=== PATIENT | male | born 1955 | race Caucasian/White ===

== ENCOUNTER 2017-01-09 15:26 | Inpatient (IN) | payer BC, OTHER ==
[~2017-01-09] VITALS: Ht 180.3 cm; Wt 111.5 kg
[~2017-01-09 15:26] MED LIST: ACET-1256 PO; AMIO200T4 PO; CMD2 PO; CRFL PO; DEXTCAP23 PO; FRS/40 PO; LEVO200T6 PO; LEVO25TA5 PO; METO-217 PO; METO25TA3 PO; PRLSR20 PO; SPIR25TA PO
[2017-01-09] MEDS ORDERED: SODIUM CHLORIDE 0.9% 500ML 500 ML IV STA (15:57)
[2017-01-09] MEDS ORDERED: METHYLPREDNISOLONE 1000 MG/16 ML IV STA (15:57)
[2017-01-09] MEDS ORDERED: LEVAQUIN 750MG / 150ML D5W IV ONE (16:00)
[2017-01-09] MEDS ORDERED: METHYLPREDNISOLONE 125 MG VIAL IV STA (16:04)
--- NOTE | 2017-01-09 16:04 | EMERGENCY ROOM VISIT NOTE ---
History First contact with patient: 15:43 Chief Complaint: RESPIRATORY PROBLEMS Stated Complaint: FLU, FLUID IN CHEST Nursing Triage Summary: Chest congestion and SOB. Saw PCP yesterday and followed up with her today. History of pulm HTN. Has also had a fever. History of Present Illness The patient is a 61 year old male who presents to the Emergency Room with complaints of increased shortness of breath and a productive cough with green sputum for the last 4 days. The patient has a history of pulmonary hypertension. He is typically on 4 L of oxygen per nasal cannula at home. He has also felt feverish. The patient saw his primary care provider yesterday. He was started on doxycycline. He has had 2 doses with no improvement in his symptoms. The patient also has a significant cardiac history. He reports not being able to take inhalers because it exacerbates his A. fib. He does complain of some chest pain with coughing only. He has occasionally felt lightheaded over the last few days also. He denies any heart palpitations. Review of Systems 10 system review performed and negative unless noted in HPI or below Past Medical/Surgical History Medical Problems: (1) Atrial fibrillation (2) Endocarditis of mitral valve (3) GERD (gastroesophageal reflux disease) (4) H/O transesophageal echocardiography ([facility]) for monitoring (5) History of cardioversion (6) Hypothyroidism (7) Left atrial appendage closure (8) Restrictive lung disease (9) Thrombocytopenia Surgical Problems: (1) H/O exploratory thoracotomy (2) H/O inguinal hernia repair (3) H/O mitral valve replacement (4) S/P patent foramen ovale closure (5) Status post ablation of atrial fibrillation Family History No pertinent family history Social History Smoking Status: Former Smoker Alcohol Use: none Drug Use: none Marital Status: Housing Status: lives with family Current/Historical Medications Scheduled Amiodarone Hcl (Cordarone), 100 MG PO DAILY Home O2 Therapy (Oxygen), 4 LITERS NA PRN Levothyroxine Sodium (Levothyroxine Sodium), 50 MCG PO DAILY Levothyroxine Sodium (Levothyroxine Sodium), 200 MCG PO DAILY Losartan Potassium (Losartan Potassium), 12.5 MG PO DAILY Metoprolol Succinate (Toprol Xl), 50 MG PO QAM Potassium Chloride (Micro-K Ext Rel), 10 MEQ PO DAILY Spironolactone (Aldactone), 25 MG PO BID Torsemide (Demadex), 40 MG PO BID Warfarin Sod (Jantoven), 6 MG PO DIRECTED Warfarin Sod (Jantoven), 2 MG PO DIRECTED Scheduled PRN Clonazepam (Klonopin), 1 MG PO HS PRN for Anxiety Physical Exam Vital Signs Date Time Temp Pulse Resp B/P (MAP) Pulse Ox O2 Delivery O2 Flow Rate FiO2 01/09/17 18:16 88 Nasal Cannula 4.0 01/09/17 18:15 71 30 123/85 97 Nasal Cannula 4.0 01/09/17 16:41 68 17 124/59 96 Nasal Cannula 4.0 01/09/17 16:14 67 01/09/17 15:47 Nasal Cannula 4.0 01/09/17 15:35 37.3 71 20 107/66 91 Nasal Cannula Physical Exam VITALS: Vitals are noted on the nurse's note and reviewed by myself. Vital signs stable. GENERAL: 61-year-old male, in no acute distress, nondiaphoretic, well-developed well-nourished. SKIN: The skin was without rashes, HEAD: Normocephalic atraumatic. MOUTH: Mucous membranes slightly dry. NECK: Supple without nuchal rigidity. No lymphadenopathy No JVD. HEART: Irregularly irregular. Slight systolic murmur noted. LUNGS: Tachypnea noted. Mild expiratory wheeze. No crackles at the bases. ABDOMEN: Positive bowel sounds x 4.Soft, nontender, without organomegaly. No guarding or rebound tenderness. MUSCULOSKELETAL: Trace pitting edema in the lower extremities bilaterally. No erythema, tenderness or warmth appreciated. Strength 5/5 throughout. NEURO: Patient was alert and oriented to person place and time. Normal sensation to touch. No focal neurological deficits. Medical Decision & Procedures ER Provider Diagnostic Interpretation: CHEST 2 VIEWS ROUTINE CLINICAL HISTORY: SOB cough wheezing dyspnea COMPARISON STUDY: 09/11/2015 FINDINGS: Moderate cardiomegaly. Prior median sternotomy and valve replacement. Calcific change right lung base unchanged. Small bilateral pleural effusions unchanged. Diffuse interstitial and pulmonary vasculature prominence suggesting interstitial edema. IMPRESSION: Cardiomegaly with components of interstitial congestive heart failure. Small bilateral pleural effusions. The above report was generated using voice recognition software. It may contain grammatical, syntax or spelling errors. Electronically signed by: Tacos Carias M.D. 01/09/2017 5:18 PM Laboratory Results 01/09/17 16:19 Red Blood Count 3.37, Mean Corpuscular Volume 95.3, Mean Corpuscular Hemoglobin 30.9, Mean Corpuscular Hemoglobin Concent 32.4, Mean Platelet Volume 8.7, Neutrophils (%) (Auto) 75.7, Lymphocytes (%) (Auto) 9.9, Monocytes (%) (Auto) 12.3, Eosinophils (%) (Auto) 1.7, Basophils (%) (Auto) 0.0, Neutrophils # (Auto ) 5.22, Lymphocytes # (Auto) 0.68, Monocytes # (Auto) 0.85, Eosinophils # (Auto ) 0.12, Basophils # (Auto) 0.00 01/09/17 16:19 Test 01/09/17 16:19 White Blood Count 6.90 K/uL (4.8-10.8) Red Blood Count 3.37 M/uL (4.7-6.1) Hemoglobin 10.4 g/dL (14.0-18.0) Hematocrit 32.1 % (42-52) Mean Corpuscular Volume 95.3 fL (80-100) Mean Corpuscular Hemoglobin 30.9 pg (25-34) Mean Corpuscular Hemoglobin Concent 32.4 g/dl (32-36) Platelet Count 123 K/uL (130-400) Mean Platelet Volume 8.7 fL (7.4-10.4) Neutrophils (%) (Auto) 75.7 % Lymphocytes (%) (Auto) 9.9 % Monocytes (%) (Auto) 12.3 % Eosinophils (%) (Auto) 1.7 % Basophils (%) (Auto) 0.0 % Neutrophils # (Auto) 5.22 K/uL (1.4-6.5) Lymphocytes # (Auto) 0.68 K/uL (1.2-3.4) Monocytes # (Auto) 0.85 K/uL (0.11-0.59) Eosinophils # (Auto) 0.12 K/uL (0-0.5) Basophils # (Auto) 0.00 K/uL (0-0.2) RDW Standard Deviation 54.2 fL (36.4-46.3) RDW Coefficient of Variation 15.6 % (11.5-14.5) Immature Granulocyte % (Auto) 0.4 % Immature Granulocyte # (Auto) 0.03 K/uL (0.00-0.02) Prothrombin Time 42.1 SECONDS (9.0-12.0) Prothromb Time International Ratio 3.7 (0.9-1.1) Anion Gap 4.0 mmol/L (3-11) Est Creatinine Clear Calc Drug Dose 71.1 ml/min Estimated GFR () 62.8 Estimated GFR (Non- 54.2 BUN/Creatinine Ratio 16.6 (10-20) Lactic Acid Level 1.4 mmol/L (0.4-2.0) Calcium Level 8.4 mg/dl (8.5-10.1) Magnesium Level 2.4 mg/dl (1.8-2.4) Total Bilirubin 1.7 mg/dl (0.2-1) Aspartate Amino Transf (AST/SGOT) 11 U/L (15-37) Alanine Aminotransferase (ALT/SGPT) 21 U/L (12-78) Alkaline Phosphatase 79 U/L (45-117) Total Protein 7.1 gm/dl (6.4-8.2) Albumin 3.4 gm/dl (3.4-5.0) Globulin 3.7 gm/dl (2.5-4.0) Albumin/Globulin Ratio 0.9 (0.9-2) Medications Administered Medications (Trade) Dose Ordered Sig/Neyda Route Start Time Stop Time Status Last Admin Dose Admin Sodium Chloride 500 ml @ 0 mls/hr Q0M STAT IV 01/09/17 15:57 01/09/17 16:00 DC 01/09/17 16:37 0 MLS/HR Levofloxacin (Levaquin / D5W) 750 mg NOW ONCE IV 01/09/17 16:00 01/09/17 16:01 DC 01/09/17 16:37 750 MG Methylprednisolone Sodium Succinate (Solu-Medrol IV) 60 mg NOW STAT IV 01/09/17 16:04 01/09/17 16:05 DC 01/09/17 16:36 60 MG Furosemide (Lasix Inj) 40 mg NOW STAT IV 01/09/17 18:05 01/09/17 18:06 DC 01/09/17 18:22 40 MG ECG Indication: SOB/dyspnea Rate (beats per minute): 69 Rhythm: atrial fibrillation Comparison ECG Date: atrial fibrillation has replaced sinus rhythm ED Course Patient was seen and examined Vital signs including blood pressure were reviewed medications list was verified with patient Labs were obtained, and a saline lock was established Imaging was performed and reviewed The patient was given 1 dose of Solu-Medrol 60 mg IV. He was also given 1 dose of Levaquin. Upon reassessment, the patient was resting in bed. We discussed the results of his workup. He voiced understanding. The patient was given 1 dose of Lasix 40 mg IV The patient ambulated in the hallway. His oxygen dropped to 79% on 4 L The case was discussed with case management I discussed the case with the [facility]ist. They agreed to admit the patient. Medical Decision Differential diagnosis: Bronchitis, pneumonia, influenza , CHF exacerbation, pneumothorax, other viral syndrome, cardiac arrhythmia, severe anemia this patient is a pleasant 61-year-old male that presented to the emergency department with complaints of infectious symptoms including cough, and fever the patient is being treated for bronchitis/pneumonia with doxycycline. He has had 2 doses with no improvement. He complains of worsening dyspnea despite being on his typical 4 L of oxygen per nasal cannula. The patient's symptoms sounded infectious; therefore, he was given 1 dose of Levaquin. Upon review of the chest x-ray, it appears that he also is in heart failure. This could be secondary to his acute infection. The patient did have significant desaturation on his typical flow of 4 L per nasal cannula. I do not feel comfortable sending the patient home with his acute on chronic respiratory failure. He will need to be admitted with IV antibiotics as he has failed outpatient therapy. He will also likely need IV diuretics. Of note, the patient was recently taken off Lasix and started on Demadex. This could also be playing a role in his CHF exacerbation. Medication Reconcilliation Current Medication List: was personally reviewed by me Blood Pressure Screening Patient's blood pressure: Normal blood pressure Impression Primary Impression: Acute and chronic respiratory failure with hypoxia Departure Information Referrals Tacos Richards M.D. (PCP) Patient Instructions [facility]
[2017-01-09] MEDS ORDERED: TORS20TA2 PO (16:17)
[2017-01-09] MEDS ORDERED: POTA10CA28 PO (16:17)
[2017-01-09] MEDS ORDERED: CLON1TAB3 PO (16:17)
[2017-01-09] MEDS ORDERED: OXGN (16:17)
[2017-01-09] MEDS ORDERED: CZR25 PO (16:17)
[2017-01-09] MEDS ORDERED: WARF2TAB8 PO ×2 (16:17)
--- NOTE | 2017-01-09 16:24 | EMERGENCY ROOM VISIT NOTE ---
ED Visit Note First contact with patient: 15:43 I have seen and examined this patient with Mayte Jimenez and generally agree with the treatment plan as discussed. Problem List Medical Problems: (1) Atrial fibrillation Status: Chronic (2) Endocarditis of mitral valve Status: Chronic (3) GERD (gastroesophageal reflux disease) Status: Chronic (4) H/O transesophageal echocardiography ([facility]) for monitoring Permanent Comment: 09/06/15 - EF 55-59%, prosthetic mitral valve function Status: Chronic (5) History of cardioversion Permanent Comment: multiple times for atrial fibrillation Status: Chronic (6) Hypothyroidism Status: Chronic (7) Left atrial appendage closure Status: Chronic (8) Restrictive lung disease Status: Chronic (9) Thrombocytopenia Status: Chronic Surgical Problems: (1) H/O exploratory thoracotomy Status: Chronic (2) H/O inguinal hernia repair Status: Chronic (3) H/O mitral valve replacement Permanent Comment: x 2 for infective endocarditis in 2003 and 2006 Status: Chronic (4) S/P patent foramen ovale closure Status: Chronic (5) Status post ablation of atrial fibrillation Permanent Comment: x 2, most recently 09/06/15 Status: Chronic Current/Historical Medications Scheduled Amiodarone Hcl (Cordarone), 100 MG PO DAILY Home O2 Therapy (Oxygen), 4 LITERS NA PRN Levothyroxine Sodium (Levothyroxine Sodium), 50 MCG PO DAILY Levothyroxine Sodium (Levothyroxine Sodium), 200 MCG PO DAILY Losartan Potassium (Losartan Potassium), 12.5 MG PO DAILY Metoprolol Succinate (Toprol Xl), 50 MG PO QAM Potassium Chloride (Micro-K Ext Rel), 10 MEQ PO DAILY Spironolactone (Aldactone), 25 MG PO BID Torsemide (Demadex), 40 MG PO BID Warfarin Sod (Jantoven), 6 MG PO DIRECTED Warfarin Sod (Jantoven), 2 MG PO DIRECTED Scheduled PRN Clonazepam (Klonopin), 1 MG PO HS PRN for Anxiety Allergies Coded Allergies: No Known Allergies (Verified , 01/09/17) Vital Signs Date Time Temp Pulse Resp B/P (MAP) Pulse Ox O2 Delivery O2 Flow Rate FiO2 01/09/17 16:14 67 01/09/17 15:47 Nasal Cannula 4.0 01/09/17 15:35 37.3 71 20 107/66 91 Nasal Cannula Laboratory Results Test 01/09/17 15:57 01/09/17 16:05 Departure Information Referrals Tacos Richards M.D. (PCP) [facility] Instructions [facility]
[2017-01-09 16:35] LABS: COMPLETE YES; EOS % 1.7 %; HEMATOCRIT 32.1 % (42-52); IG% 0.4 %; LYMPH % 9.9 %; LYMPH ABS # 0.68 K/uL (1.2-3.4); MEAN CELL VOLUME 95.3 fL (80-100); MEAN CORPUSCULAR HEMOGLOBIN 30.9 pg (25-34); MEAN CORPUSCULAR HGB CONC 32.4 g/dl (32-36); MEAN PLATELET VOLUME 8.7 fL (7.4-10.4); MONO % 12.3 %; NEUT % 75.7 %; PLATELET COUNT 123 K/uL (130-400); RED BLOOD COUNT 3.37 M/uL (4.7-6.1)
[2017-01-09 16:51] LABS: BUN/CREATININE RATIO 16.6 (10-20); CREATININE 1.4 mg/dl (0.60-1.40); POTASSIUM 3.5 mmol/L (3.5-5.1)
[2017-01-09 16:52] LABS: CALCIUM 8.4 mg/dl (8.5-10.1); MAGNESIUM 2.4 mg/dl (1.8-2.4)
[2017-01-09 16:54] LABS: ALB/GLOB RATIO 0.9 (0.9-2)
[2017-01-09 16:56] LABS: INR 3.7 (0.9-1.1); PROTHROMBIN TIME (PATIENT) 42.1 SECONDS (9.0-12.0)
--- NOTE | 2017-01-09 17:19 | DIAGNOSTIC IMAGING REPORT ---
CHEST 2 VIEWS ROUTINE CLINICAL HISTORY: SOB cough wheezing dyspnea COMPARISON STUDY: 09/11/2015 FINDINGS: Moderate cardiomegaly. Prior median sternotomy and valve replacement. Calcific change right lung base unchanged. Small bilateral pleural effusions unchanged. Diffuse interstitial and pulmonary vasculature prominence suggesting interstitial edema. IMPRESSION: Cardiomegaly with components of interstitial congestive heart failure. Small bilateral pleural effusions. The above report was generated using voice recognition software. It may contain grammatical, syntax or spelling errors. Electronically signed by: Tacos Carias M.D. 01/09/2017 5:18 PM Dictated Date/Time: 01/09/2017 5:16 PM
[2017-01-09] MEDS ORDERED: FUROSEMIDE 40 MG/4 ML VIAL IV STA (18:05)
[2017-01-09] MEDS ORDERED: AMX500 PO (19:24)
[2017-01-09] MEDS ORDERED: ACET500T57 PO (19:24)
[2017-01-09] MEDS ORDERED: DXY100 PO (19:24)
[2017-01-09 20:06] VITALS: BP 115/61; PULSE 73; TEMP 37; Ht 180.3 cm; Wt 111.5 kg
[2017-01-09] MEDS ORDERED: CEFTRIAXONE SOD INJ 1 GM in DEXTROSE 5% ADD-VANTAGE 50ML 50 ML IV STA ×2 (20:22→20:25)
--- NOTE | 2017-01-09 20:57 | History and Physical ---
History & Physical Date & Time of Service: Jan 09, 2017 at 19:26 Chief Complaint: Flu, Fluid In Chest Primary Care Physician: Tacos Richards M.D. History of Present Illness Source: patient, spouse, clinic records This is a 61 year old male with PMH of pulmonary hypertension, atrial fibrillation, h/o endocarditis s/p bioprosthetic mitral valve replacement, chronic hypoxemic respiratory failure, hypothyroidism, and other problems listed below who presents to the ED with dyspnea. Patient reports chest congestion starting 2-3 days ago with associated cough with yellow sputum and fevers (Tmax 100.6). Patient was seen in clinic by Dr. Andrews yesterday, labs were done including blood cultures, and pt was started on doxycycline- took 2 doses without improvement. He was re-evaluated by Dr. Andrews today who sent him to the ED. He reports insomnia. Chronically sleeps on his side with 1 pillow (unchanged). Has gradually worsening WEBER over past 3 months. Becomes dyspneic with ambulating approx 200 ft or climbing 1-2 flights of stairs. Has been lightheaded on ambulation. Has been voiding well. Compliant with diuretics and sodium/ fluid restriction. He denies any nasal congestion, sore throat, chest pain, palpitations, syncope, increasing LE edema, weight gain. His Lasix was recently changed to torsemide. For cardiology patient has followed with Dr. Weiner, Dr. Hart, and Dr. Cardenas. Sees Dr. Wilder for pulm. Recent cardiac cath showed severe pulmonary HTN and coronary arteries without obstructive disease. Echo 10/2016 showed preserved EF. Patient was reviewed and discussed in 12/29/2016 Advanced Lung Disease Conference whose impression was that patient has Group 2 pulmonary HTN. Sleep study was recommended and is scheduled for later this month. Past Medical/Surgical History Medical Problems: (1) Atrial fibrillation Status: Chronic (2) Chronic hypoxemic respiratory failure Status: Chronic (3) Endocarditis of mitral valve Status: Chronic (4) GERD (gastroesophageal reflux disease) Status: Chronic (5) H/O transesophageal echocardiography ([facility]) for monitoring Permanent Comment: 09/06/15 - EF 55-59%, prosthetic mitral valve function Status: Chronic (6) History of cardioversion Permanent Comment: multiple times for atrial fibrillation Status: Chronic (7) Hypothyroidism Status: Chronic (8) Left atrial appendage closure Status: Chronic (9) Restrictive lung disease Status: Chronic (10) Thrombocytopenia Status: Chronic Surgical Problems: (1) H/O exploratory thoracotomy Status: Chronic (2) H/O inguinal hernia repair Status: Chronic (3) H/O mitral valve replacement Permanent Comment: x 2 for infective endocarditis in 2003 and 2006 Status: Chronic (4) S/P patent foramen ovale closure Status: Chronic (5) Status post ablation of atrial fibrillation Permanent Comment: x 2, most recently 09/06/15 Status: Chronic Family History FH: HTN (hypertension) MOTHER FHx: congenital heart disease DAUGHTER Mitral valve disorder MOTHER PTCA FATHER BROTHER Social History Smoking Status: Former Smoker (quit 1978) Alcohol Use: occasionally (occasional wine) Marital Status: in relationship Immunizations History of Influenza Vaccine: Yes Influenza Vaccine Date: Feb 22, 2015 History of Tetanus Vaccine?: Yes Tetanus Immunization Date: Sep 24, 2008 History of Pneumococcal: Yes Pneumococcal Date: May 12, 2013 Multi-Drug Resistant Organisms History of MDRO: No Allergies Coded Allergies: No Known Allergies (Verified , 01/09/17) Home Medications Scheduled Amiodarone Hcl (Cordarone), 100 MG PO DAILY Amoxicillin (Amoxicillin), 500 MG PO UD Doxycycline Hyclate (Doxycycline Hyclate), 100 MG PO BID Home O2 Therapy (Oxygen), 4 LITERS NA CONTINOUS Levothyroxine Sodium (Levothyroxine Sodium), 50 MCG PO DAILY Levothyroxine Sodium (Levothyroxine Sodium), 200 MCG PO DAILY Losartan Potassium (Losartan Potassium), 12.5 MG PO DAILY Metoprolol Succinate (Toprol Xl), 25 MG PO BID Potassium Chloride (Micro-K Ext Rel), 10 MEQ PO Q2D Spironolactone (Aldactone), 25 MG PO BID Torsemide (Demadex), 40 MG PO BID Warfarin Sod (Jantoven), 4 MG PO DAILY Scheduled PRN Acetaminophen (Acetaminophen), 1,000 TAB PO Q6 PRN for Pain or Fever Clonazepam (Klonopin), 1 MG PO HS PRN for Anxiety Review of Systems Ten systems reviewed and negative except as noted in HPI. Physical Exam Vital Signs Date Time Temp Pulse Resp B/P (MAP) Pulse Ox O2 Delivery O2 Flow Rate FiO2 01/09/17 18:16 88 Nasal Cannula 4.0 01/09/17 18:15 71 30 123/85 97 Nasal Cannula 4.0 01/09/17 16:41 68 17 124/59 96 Nasal Cannula 4.0 01/09/17 16:14 67 01/09/17 15:47 Nasal Cannula 4.0 01/09/17 15:35 37.3 71 20 107/66 91 Nasal Cannula General Appearance: WD/WN, no apparent distress, + pertinent finding ( significant other at bedside) Head: normocephalic, atraumatic Eyes: normal inspection, sclerae normal ENT: normal ENT inspection, hearing grossly normal Neck: supple, no JVD, trachea midline Respiratory/Chest: no accessory muscle use, + decreased breath sounds, + pertinent finding (mildly increased work of breathing, but able to speak full sentences. no wheezing, rhonchi, or crackles. saturating well on 4 liters NC) Cardiovascular: + irregularly irregular (rate 70's), + pertinent finding ( murmur not appreciated) Abdomen/GI: non tender, soft Extremities/Musculoskelatal: no calf tenderness, + pertinent finding (1+ bilateral LE edema. venous stasis changes bilateral LE. ) Neurologic/Psych: alert, normal mood/affect, oriented x 3, + pertinent finding (grossly without focal deficit) Skin: normal color, warm/dry Diagnostics Laboratory Results Results Past 24 Hours Test 01/09/17 16:19 Range/Units White Blood Count 6.90 4.8-10.8 K/uL Red Blood Count 3.37 4.7-6.1 M/uL Hemoglobin 10.4 14.0-18.0 g/dL Hematocrit 32.1 42-52 % Mean Corpuscular Volume 95.3 80-100 fL Mean Corpuscular Hemoglobin 30.9 25-34 pg Mean Corpuscular Hemoglobin Concent 32.4 32-36 g/dl Platelet Count 123 130-400 K/uL Mean Platelet Volume 8.7 7.4-10.4 fL Neutrophils (%) (Auto) 75.7 % Lymphocytes (%) (Auto) 9.9 % Monocytes (%) (Auto) 12.3 % Eosinophils (%) (Auto) 1.7 % Basophils (%) (Auto) 0.0 % Neutrophils # (Auto) 5.22 1.4-6.5 K/uL Lymphocytes # (Auto) 0.68 1.2-3.4 K/uL Monocytes # (Auto) 0.85 0.11-0.59 K/uL Eosinophils # (Auto) 0.12 0-0.5 K/uL Basophils # (Auto) 0.00 0-0.2 K/uL RDW Standard Deviation 54.2 36.4-46.3 fL RDW Coefficient of Variation 15.6 11.5-14.5 % Immature Granulocyte % (Auto) 0.4 % Immature Granulocyte # (Auto) 0.03 0.00-0.02 K/uL Prothrombin Time 42.1 9.0-12.0 SECONDS Prothromb Time International Ratio 3.7 0.9-1.1 Sodium Level 141 136-145 mmol/L Potassium Level 3.5 3.5-5.1 mmol/L Chloride Level 104 98-107 mmol/L Carbon Dioxide Level 33 21-32 mmol/L Anion Gap 4.0 3-11 mmol/L Blood Urea Nitrogen 23 7-18 mg/dl Creatinine 1.40 0.60-1.40 mg/dl Est Creatinine Clear Calc Drug Dose 71.1 ml/min Estimated GFR () 62.8 Estimated GFR (Non- 54.2 BUN/Creatinine Ratio 16.6 10-20 Random Glucose 90 70-99 mg/dl Lactic Acid Level 1.4 0.4-2.0 mmol/L Calcium Level 8.4 8.5-10.1 mg/dl Magnesium Level 2.4 1.8-2.4 mg/dl Total Bilirubin 1.7 0.2-1 mg/dl Aspartate Amino Transf (AST/SGOT) 11 15-37 U/L Alanine Aminotransferase (ALT/SGPT) 21 12-78 U/L Alkaline Phosphatase 79 45-117 U/L Total Protein 7.1 6.4-8.2 gm/dl Albumin 3.4 3.4-5.0 gm/dl Globulin 3.7 2.5-4.0 gm/dl Albumin/Globulin Ratio 0.9 0.9-2 Microbiology Results 01/09/17 Blood Culture, Received Pending 01/09/17 Blood Culture, Received Pending 01/09/17 Gram Stain, Received Pending 01/09/17 Sputum Culture, Received Pending Diagnostic Radiology CHEST 2 VIEWS ROUTINE CLINICAL HISTORY: SOB cough wheezing dyspnea COMPARISON STUDY: 09/11/2015 FINDINGS: Moderate cardiomegaly. Prior median sternotomy and valve replacement. Calcific change right lung base unchanged. Small bilateral pleural effusions unchanged. Diffuse interstitial and pulmonary vasculature prominence suggesting interstitial edema. IMPRESSION: Cardiomegaly with components of interstitial congestive heart failure. Small bilateral pleural effusions. EKG atrial fibrillation, 69 bpm, possible RV conduction delay, left posterior fascicular block, nonspecific T wave abnormality in aVL, no ST abnormality, qt= 444, qtc= 475 Impression Assessment and Plan DYSPNEA In setting of chronic respiratory failure on 4 liters continuous; underlying severe PAH (group 2 as per [facility] Advanced Lung Disease conference note), hx pulmonary nodules; hx tobacco abuse, hx endocarditis s/p replacement x 2 ( bioprosthesis) on Coumadin (INR 3.7; goal 2.5-3.5), and Afib s/p ablations; hx PFO closure Nonobstructive coronary artery disease but evidence of myocardial bridging of LAD and ramus intermedius on cath December 2006 and October 2016 Differential includes volume overload, worsening pulmonary artery hypertension and/ or valvular disease, community acquired pneumonia (has productive cough, low grade fever) CXR- cardiomegaly with components of interstitial congestive heart failure. small bilateral pleural effusions Pro-BNP- 900; initial troponin negative Prior cardiac cath 10/26/2016 showed severe pulmonary HTN and coronary arteries without obstructive disease Last echo 10/26/16- see below Treated for possible CAP as outpatient with doxycycline (took 2 doses); given dose of Levaquin in ER; will continue empiric abx (ceftriaxone and azithromycin) ; f/u sputum and blood cultures For mild volume overload, discontinued IVF's ordered by ER; received IV Lasix 40 mg in ER; will continue IV Lasix 40 mg daily (takes torsemide 40 mg BID at home); continue spironolactone; Fluid restriction 1 liter; Monitor I/O's and daily weight Trend cardiac enzymes Check repeat echo Continue supplemental O2 Consider VQ scan if no improvement with current treatments Sleep study planned as outpatient Consult cardiology- case was discussed with Dr. Arias Prior echo 10/25/16- "The qualitative LV ejection fraction is 60-64% (normal). The LV wall thickness is moderately increased (concentric). The right ventricular cavity is moderately dilated. The right ventricular systolic function is normal as assessed by tricuspid annular plane systolic excursion (TAPSE) (normal >1.7 cm). The left atrium is severely enlarged. The right atrium is moderately enlarged. #25 mm Yonatan Yip bioprosthesis appears well seated, however, the the geometry of mitral valve annulus has been altered so that the bioprosthesis is angulated with mitral valve inflow directed toward the interventricular septum. The mitral valve prosthesis systolic gradients are are borderline elevated and are indeterminate for obstruction. Significant mitral valve prosthesis regurgitation is absent. Mild tricuspid regurgitation is present. Injection of agitated saline contrast demonstrates a moderate right to left interatrial shunt. The estimated pulmonary artery systolic pressure is 44mm Hg. Compared to study dated 09/22/2013 changes are noted as follows: Bioprosthetic mitral valve diastolic gradients have increased." BIOPROSTHETIC MITRAL VALVE On Coumadin; supra-therapeutic (3.7) goal is 2.5-3.5 Recheck INR in AM and titrate Coumadin as indicated ATRIAL FIBRILLATION Rate is controlled Continue metoprolol and amiodarone On Coumadin- management as above HYPERTENSION BP is stable Continue losartan HYPOTHYROIDISM Check T4 level Continue levothyroxine (ordered as 50 and 200 mcg for total of 250 mcg as patient takes at home) DVT PROPHYLAXIS Coumadin CODE STATUS Full code per discussion with patient on admission. DISPOSITION Admission telemetry Follows with Dr. Richards for primary care Patient seen in collaboration with Dr. Cabrera. Please see his addendum. ATTENDING PHYSICIAN ADDENDUM I have performed the physical exam with Lauren Mccarthy PA-C and agree with her findings and plan and in addition would comment on the following: Exam: Patient is in no acute distress, awake and oriented, speaking comfortably in full sentences while on nasal cannula, follows commands. There are no crackles appreciated in the lung gallagher throughout. No wheezing. No stridor. Has some limitations in inspiratory effort however no use of accessory muscles. Cardiac exam of heart rate that is irregular in rhythm. No appreciable murmurs could be discerned. No JVD. No cervical adenopathy. Oral pharynx are without exudates. Abdomen exam is soft, nontender, + bowel sounds. Edema in lower extremities that is 1+ bilaterally from ankle to knees bilaterally. This is a 61 year old M with multiple cardiovascular conditions (atrial fibrillation on beta howard despite s/p pulmonary vein ablation, moderate to severe pulmonary artery hypertension, history of endocarditis x 2 which had been treated, history of bioprosthesis mitral valve, currently on anticoagulation with coumadin with supratherapeutic INR, currently on home oxygen) who describes of having progressive shortness of breath and functional impairments over the past 3 months, who presents to the ED after 3 days of congestion and cough with reported history of 100.6 F and has been on doxycycline x 2 doses by outpatient provider. At this time there may be multiple differentials in acute presentation of respiratory symptoms including viral vs bacterial pulmonary as there appears to be interstitial lung findings on chest X ray, vs cardio-pulmonary causes for fluid overload (his BNP is over 900 with lower extremity edema) including pulmonary artery hypertension. Will empirically continue antibiotics for coverage of community acquired pneumonia and diuresis for fluid overload. Patient is admitted to telemetry monitoring. Will trend troponins. Will obtain 2D TTE to compare whether he has worsening pulmonary hypertension or further valvular disease based on previous records. Will recheck his INR in the morning to adjust coumadin medication. Awaiting cardiology consult in recommendations for treatment of his multiple cardiac problems. Will also send thyroid function tests as patient is on amiodarone for his history of arrhythmias and he has been on levothyroxine for hypothyroidism. VTE Prophylaxis VTE Risk Assessment Done? Y/N: Yes Risk Level: Moderate Given or contraindicated: Warfarin (Coumadin)
[2017-01-09] MEDS ORDERED: AZITHROMYCIN IV 500 MG in DEXTROSE 5% 250ML 250 ML IV SCH (21:00)
[2017-01-09] MEDS: METOPROLOL SUCC 25MG EXT REL TAB PO SCH (21:30)
[2017-01-09] MEDS: SPIRONOLACTONE 25 MG TAB PO SCH (21:30)
[2017-01-09] MEDS: POTASSIUM CHLORIDE 10 MEQ TABCR PO SCH (21:31)
[2017-01-09] MEDS ORDERED: NURSING VERBAL MED ORDER ONE (22:30)
[2017-01-09] MEDS ORDERED: GUAIFENESIN/DEXTROM SYRUP 200MG/20MG 10ML UDC PO PRN (22:30)
[2017-01-09 23:13] VITALS: BP 100/62; PULSE 68; TEMP 36.5; O2SAT 94
[2017-01-10 04:06] VITALS: BP 110/70; PULSE 71; TEMP 36.6; O2SAT 93
[2017-01-10] MEDS ORDERED: COUGH DROP (SUGAR FREE) LOZ 24 LOZ/1 BOX ONE (05:20)
[2017-01-10] MEDS: LEVOTHYROXINE 50 MCG TAB PO SCH (05:21)
[2017-01-10] MEDS: LEVOTHYROXINE 200 MCG TAB PO SCH (05:21)
[2017-01-10 07:12] LABS: COMPLETE YES; HEMATOCRIT 31.7 % (42-52); IG% 0.4 %; LYMPH ABS # 0.21 K/uL (1.2-3.4); MEAN CORPUSCULAR HEMOGLOBIN 29.9 pg (25-34); MEAN CORPUSCULAR HGB CONC 32.2 g/dl (32-36); MEAN PLATELET VOLUME 8.4 fL (7.4-10.4); MONO % 2.3 %; NEUT % 94.3 %; PLATELET COUNT 108 K/uL (130-400); RED BLOOD COUNT 3.41 M/uL (4.7-6.1); WHITE BLOOD COUNT 6.99 K/uL (4.8-10.8)
[2017-01-10 07:35] LABS: INR 4.1 (0.9-1.1); PARTIAL THROMBOPLASTIN RATIO 2.5; PROTHROMBIN TIME (PATIENT) 46.8 SECONDS (9.0-12.0)
[2017-01-10 07:44] VITALS: BP 108/60; PULSE 76; TEMP 36.8; O2SAT 91
[2017-01-10 07:46] LABS: ALT/SGPT 20 U/L (12-78); AST/SGOT 8 U/L (15-37); BLOOD UREA NITROGEN 27 mg/dl (7-18); BUN/CREATININE RATIO 20.9 (10-20); CALCIUM 8.8 mg/dl (8.5-10.1); CARBON DIOXIDE 30 mmol/L (21-32); CHLORIDE 105 mmol/L (98-107); GLUCOSE 140 mg/dl (70-99); POTASSIUM 4.1 mmol/L (3.5-5.1); SODIUM 140 mmol/L (136-145)
[2017-01-10] MEDS: METOPROLOL SUCC 25MG EXT REL TAB PO SCH ×2 (08:03→20:31)
[2017-01-10] MEDS: SPIRONOLACTONE 25 MG TAB PO SCH ×2 (08:04→20:31)
[2017-01-10] MEDS: LOSARTAN POTASSIUM 25 MG TAB PO SCH (08:04)
[2017-01-10] MEDS: AMIODARONE 200 MG TAB PO SCH (08:04)
[2017-01-10 08:12] LABS: ALB/GLOB RATIO 0.9 (0.9-2); ALKALINE PHOSPHATASE 80 U/L (45-117); THYROID STIMULATING HORMONE 0.097 uIu/ml (0.300-4.500)
--- NOTE | 2017-01-10 08:43 | ECHOCARDIOGRAM REPORT ---
*NOTICE TO RECEIVING CONSTITUTION PARTY AGENCY This information is strictly Confidential and protected under [place] law. [place] law prohibits you from making any further disclosure of this information unless further disclosure is expressly permitted by the written consent of the person to whom it pertains or is authorized by law. A general authorization for the release of medical or other information is not sufficient for this purpose. Hospital accepts no responsibility if the information is made available to any other person, INCLUDING THE PATIENT. Interpretation Summary * Name: BARBER MANCINI Study Date: 01/10/2017 06:33 AM BP: 110/70 mmHg * Patient Location: C.2T\S\S242\S\1 HR: 55 * : 1955 (M/d/yyyy) Gender: Male Height: 70 in * Age: 61 yrs Ethnicity: CA Weight: 244 lb * Ordering Physician: Chinmay Cabrera * Referring Physician: Self, Referred * Performed By: Daya Julio RCS * * Reason For Study: Atrial Fibrillation * BSA: 2.3 m2 * The study was technically adequate. * -- Conclusions -- * Flattened septum with septal dyskinesis is consistent with RV pressure/volume overload. * The LV Ejection Fraction = 50-55%. * The right ventricle is moderately dilated. * The right ventricular systolic function is moderately reduced. * The left atrium is severely dilated. * There is a bioprosthetic mitral valve. * Significant mitral regurgitation is absent. * The mitral valve bioprosthesis is situated is such a way as it angles toward the left ventricular outflow tract , making Doppler assessment of mitral stenosis technically difficult. * No significant mitral stenosis is detected with calculated diastolic mean gradient of 6 mm Hg, which is normal for this prosthesis. * Significant tricuspid regurgitation is absent. * The Doppler evaluation of tricuspid regurgitation is technically limited, and therefore the right ventricular systolic pressure and pulmonary artery systolic pressure cannot be calculated. * Pulmonary hypertension is suspected based on 2D findings. * Compared to the prior study dated 09/11/15, the right ventricle is better visualized on the current study, with images obtained utilizing ultrasound contrast. Procedure Details * A contrast injection of Definity was performed to improve assessment of LV function. * Contrast was injected into an intravenous site in the left arm. * One vial of Definity ultrasound contrast was diluted in normal saline to a total volume of 10 ml. A total of '4' ml of solution was administered during imaging. * Lot # [id number] of Definity utilized for procedure. * Expiration date [id number]. * A complete two-dimensional transthoracic echocardiogram was performed (2D, M-mode, Doppler and color flow Doppler). Left Ventricle * The left ventricle is normal in size. * There is mild concentric left ventricular hypertrophy. * Left ventricular systolic function is normal. * Ejection Fraction = 50-55%. * Flattened septum with septal dyskinesis is consistent with RV pressure/volume overload. Right Ventricle * The right ventricle is moderately dilated. * The right ventricular systolic function is moderately reduced. Atria * The left atrium is severely dilated. * Right atrial size is normal. * There is no evidence of atrial septal defect, but resolution does not allow assessment for a patent foramen ovale. Mitral Valve * Significant mitral regurgitation is absent. * There is a bioprosthetic mitral valve. * The mitral valve bioprosthesis is situated is such a way as it angles toward the left ventricular outflow tract , making Doppler assesment of mitral stenosis technically difficult. No significant mitral stenosis is detected with calculated diastolic mean gradient of 6 mm Hg, which is normal for this prosthesis. Tricuspid Valve * The tricuspid valve is normal. * There is no tricuspid stenosis. * Significant tricuspid regurgitation is absent. * The Doppler evaluation of tricuspid regurgitation is technically limited, and therefore the right ventricular systolic pressure and pulmonary artery systolic pressure cannot be calculated. Pulmonary hypertension is suspected based on 2D fidndings. Aortic Valve * The aortic valve is trileaflet. * Aortic stenosis is absent. * There is no significant aortic regurgitation. Pulmonic Valve * The pulmonary valve is not well seen, but the Doppler examination is normal without significant regurgitation or stenosis. Great Vessels * The aortic root and proximal ascending aorta are normal sized. Pericardium/Pleural * There is no pericardial effusion. Great Vessels * Normal inferior vena cava diameter and respiratory variation suggests normal central venous pressure. Left Ventricular Diastolic Function * Grade I diastolic dysfunction, (abnormal relaxation pattern). MMode 2D Measurements and Calculations IVSd 1.6 cm LVIDd 4.0 cm LVIDs 3.0 cm LVPWd 1.7 cm IVS/LVPW 0.93 FS 25.0 % EDV(Teich) 69.3 ml ESV(Teich) 34.6 ml EF(Teich) 50.1 % EDV(cubed) 63.2 ml ESV(cubed) 26.6 ml EF(cubed) 57.9 % LV mass(C)d 279.2 grams LV mass(C)dI 122.9 grams/m\S\2 SV(Teich) 34.7 ml SI(Teich) 15.3 ml/m\S\2 SV(cubed) 36.6 ml SI(cubed) 16.1 ml/m\S\2 Ao root diam 3.6 cm Ao root area 10.1 cm\S\2 LVOT diam 2.4 cm LVOT area 4.7 cm\S\2 LVAd ap4 41.0 cm\S\2 LVLd ap4 9.6 cm EDV(MOD-sp4) 142.3 ml EDV(sp4-el) 148.0 ml LVAs ap4 23.1 cm\S\2 LVLs ap4 8.6 cm ESV(MOD-sp4) 50.2 ml ESV(sp4-el) 52.3 ml EF(MOD-sp4) 64.7 % EF(sp4-el) 64.7 % LVAd ap2 32.5 cm\S\2 LVLd ap2 9.0 cm EDV(MOD-sp2) 94.9 ml EDV(sp2-el) 99.5 ml LVAs ap2 22.3 cm\S\2 LVLs ap2 8.0 cm ESV(MOD-sp2) 48.8 ml ESV(sp2-el) 52.5 ml EF(MOD-sp2) 48.6 % EF(sp2-el) 47.2 % LVLd %diff -6.94 % EDV(MOD-bp) 117.4 ml LVLs %diff -7.35 % ESV(MOD-bp) 51.1 ml EF(MOD-bp) 56.5 % SV(MOD-sp4) 92.1 ml SI(MOD-sp4) 40.5 ml/m\S\2 SV(MOD-sp2) 46.1 ml SI(MOD-sp2) 20.3 ml/m\S\2 SV(MOD-bp) 66.3 ml SI(MOD-bp) 29.2 ml/m\S\2 SV(sp4-el) 95.7 ml SI(sp4-el) 42.2 ml/m\S\2 SV(sp2-el) 47.0 ml SI(sp2-el) 20.7 ml/m\S\2 Doppler Measurements and Calculations MV V2 max 232.8 cm/sec MV max PG 22.3 mmHg MV V2 mean 112.4 cm/sec MV mean PG 6.7 mmHg MV V2 VTI 79.5 cm Ao V2 max 147.8 cm/sec Ao max PG 8.9 mmHg Ao max PG (full) 5.6 mmHg DUARTE(V,A) 2.9 cm\S\2 DUARTE(V,D) 2.9 cm\S\2 LV V1 max PG 3.4 mmHg LV V1 max 91.3 cm/sec
[2017-01-10] MEDS ORDERED: FUROSEMIDE INJ 40 MG in SYRINGE 0 ML IV SCH (09:00)
--- NOTE | 2017-01-10 09:40 | Cardiology Consultation ---
Cardiology Consultation Date of Consultation: Jan 10, 2017 History of Present Illness Scott Rangel is a 61 year old male seen in cardiology consultation per the request of Lauren Mccarthy PA-C, for the evaluation of shortness of breath. The patient is well-known to our cardiology service, he is followed by Dr. Piero Cardenas of our practice locally as well as Dr. Hart of EP at [facility] and Dr Weiner of advanced Heart Failure at [facility] and by thoracic medicine. He has a complex cardiac history as delineated below. The patient presented yesterday having described onset of cough productive of green and pink tinged sputum 4 days with associated chest congestion. He noted low-grade subjective fever on Sunday was relieved with Tylenol. He been seen by [facility] 2 days ago was noted to have a fever of 100.6F. Patient was initially started on doxycycline as an outpatient and subsequently referred for inpatient evaluation. He notes no fevers or chills at present. He notes that he has baseline dyspnea on exertion and notes that he has to pace himself at baseline but has been doing well recently with oxygen supplementation and with diuretic dose of torsemide 40 mg twice a day which was started the dental heart failure clinic about a month ago and he has done well with this dose in the interim. Cultures have been negative thus far, he is currently on antibiotic therapy with IV Rocephin and azithromycin. He reproduces cough during my interview with him, green, slightly pink tinged sputum was observed. Telemetry reveals stable sinus rhythm in the 70-80 beat per minute range with occasional PVCs. History Past Medical History: 1. Nonobstructive coronary artery disease with evidence of myocardial bridging of the LAD and ramus intermedius on cardiac catheterization in December 2006 and again in October 2016 2. Severe pulmonary hypertension, PA pressure of 80/30 mmHg, hemodynamic cardiac catheterization [facility] October 2016, has since been deemed to have World Health Organization class II pulmonary hypertension with elevated troponin pressures due to elevated left sided cardiac pressure 3. History of mitral valve endocarditis for which she underwent mitral valve replacement with Yonatan-Yip prosthesis 2003, with associated PFO closure and left atrial appendage ligation 4. Return to the operating room for repair of abscess mitral valve annulus 2003 5. Redo mitral valve replacement for culture-negative endocarditis February 2007 with #23 mm Yonatan Yip bioprosthesis . 6. Paroxysmal atrial fibrillation, currently managed with amiodarone, past pulmonary vein isolation procedure 2014, repeat pulmonary vein isolation procedure with isolation the posterior atrial wall, and tricuspid isthmus ablation in September 2015 Past Surgical History: As noted above, specifically patient underwent most recent cardiac catheterization at [facility] by Dr Weiner on 10/26/16: Left heart cath , coronary angiography, and right heart cath performed. Severe pulmonary hypertension was noted 80/30, mean 52 mmHg. It was felt that this was a "missed picture "of pulmonary hypertension having elevated left sided cardiac filling pressures but also elevated pulmonary vascular resistance. No significant mitral valve stenosis, the mitral valve area estimated by hemodynamic assessment was 1.7 cm Severely elevated right and left-sided filling pressures, right atrial pressure 20, [id number] Here which pressure 30 mmHg No significant left to right shunt, a trivial interatrial shunt had been noted on the transesophageal echocardiogram in 2015, this was felt to be a remnant from a prior atrial septal puncture related to his atrial fibrillation ablation Coronary arteries were without obstructive CAD, systolic bridging occurred only in a small subbranch of the ramus intermedius Social History: Patient is a former smoker having smoked half a pack a day for 3 years and quit in 1978 He does not use alcohol chronically Family History: Mother with history of mitral valve disease hypertension, thyroid disorder Father with history of coronary artery disease with prior angioplasty Brother with history of coronary artery disease and past cardiac stents He has a daughter who apparently has congenital valve disease Review Of Systems See above for pertinent positives & negatives. A total of 10 systems reviewed and were otherwise negative. Allergies Coded Allergies: No Known Allergies (Verified , 01/09/17) Medications Reported Home Medications Medications Dose Route/Sig Max Daily Dose Days Date Category Dose Instructions Amoxicillin 500 Mg Cap 500 Mg PO UD 01/09/17 Reported Take 4 capsules by mouth 1 hour before dental procedures. Acetaminophen 500 Mg Tab 1,000 Tab PO Q6 PRN 15 01/09/17 Reported Doxycycline Hyclate 100 Mg Cap 100 Mg PO BID 01/09/17 Reported Klonopin (Clonazepam) 1 Mg Tab 1 Mg PO HS PRN 01/09/17 Reported Oxygen Gas 4 Liters NA CONTINOUS 01/09/17 Reported Jantoven (Warfarin Sodium) 2 Mg Tab 4 Mg PO DAILY 01/09/17 Reported Demadex (Torsemide) 20 Mg Tab 40 Mg PO BID 01/09/17 Reported Losartan Potassium 25 Mg Tab 12.5 Mg PO DAILY 01/09/17 Reported Micro-K Ext Rel (Potassium Chloride) 10 Meq Capcr 10 Meq PO Q2D 01/09/17 Reported Toprol Xl (Metoprolol Succinate) 50 Mg Tabcr 25 Mg PO BID 04/07/15 Reported Levothyroxine Sodium 200 Mcg Tab 200 Mcg PO DAILY 04/07/15 Reported TAKE ONE 200 MCG TABLET ALONG WITH TWO 25 MCG TABLETS TO EQUAL DAILY DOSE OF 250 MCG. Levothyroxine Sodium 25 Mcg Tab 50 Mcg PO DAILY 04/07/15 Reported TAKE TWO 25 MCG TABLETS ALONG WITH ONE 200 MCG TABLET TO EQUAL DAILY DOSE OF 250 MCG. Cordarone (Amiodarone Hcl) 200 Mg Tab 100 Mg PO DAILY 03/20/14 Reported Aldactone (Spironolactone) 25 Mg Tab 25 Mg PO BID 08/15/10 Reported Physical Exam Vital Signs (Last 8hrs): Last 8 Hrs Date Time Temp Pulse Resp B/P (MAP) Pulse Ox O2 Delivery O2 Flow Rate FiO2 01/10/17 08:00 Nasal Cannula 4.0 01/10/17 07:44 36.8 76 18 108/60 (76) 91 3.0 01/10/17 04:06 36.6 71 22 110/70 (83) 93 Nasal Cannula 3.0 01/10/17 04:00 Nasal Cannula 4.0 General Appearance: Alert and Oriented x3. NAD. Head: Normocephalic Atraumatic. Eyes: PERRLA, EOMI, conjunctiva and sclera clear Neck: Supple. No carotid bruits noted. No JVD-sitting at 90 Respiratory: Breath sounds clear to auscultation bilaterally. No w/r/r. Cardiovascular: Reg rate and rhythm. S1 and S2 noted. No murmurs, rubs, gallops. PMI non displace. Abdomen: Normal bowel sounds, soft nontender. no abdominal bruits. Extremities: . Wearing knee-high compression stockings, only trace edema noted Neuro: No focal deficits. Psychiatric: Normal affect. Data Last Resulted 01/10/17 06:52 Red Blood Count 3.41, Mean Corpuscular Volume 93.0, Mean Corpuscular Hemoglobin 29.9, Mean Corpuscular Hemoglobin Concent 32.2, Mean Platelet Volume 8.4, Neutrophils (%) (Auto) 94.3, Lymphocytes (%) (Auto) 3.0, Monocytes (%) (Auto) 2.3, Eosinophils (%) (Auto) 0.0, Basophils (%) (Auto) 0.0, Neutrophils # (Auto) 6.59, Lymphocytes # (Auto) 0.21, Monocytes # (Auto) 0.16, Eosinophils # (Auto) 0.00, Basophils # (Auto) 0.00 Last Resulted 01/10/17 06:52 Past 24 Hours Test 01/09/17 16:19 01/09/17 22:56 01/10/17 06:52 Range/Units Prothromb Time International Ratio 3.7 H 4.1 H 0.9-1.1 Prothrombin Time 42.1 H 46.8 H 9.0-12.0 SECONDS Troponin I < 0.015 < 0.015 < 0.015 0-0.045 ng/ml EKG performed on admission and again today reveals normal sinus rhythm with no acute ST changes. Chest x-ray report as summarized per radiology 01/09/2017: Cardiomegaly with prior median sternotomy and valve replacement, calcific change the right lung base unchanged, small bilateral pleural effusions, unchanged compared to prior study dating back to September 2015, diffuse interstitial pulmonary vascular prominence suggestive of interstitial edema Assessment & Plan Impression: 1. Cough, chest congestion, low-grade fever, consistent with complicated bronchitis versus community acquired pneumonia 2. History of left ventricular diastolic heart failure, right ventricular failure with RV systolic dysfunction, pulmonary venous/pulmonary arterial hypertension 3. History of stage III CK D 4. History of remote mitral valve endocarditis, with mitral valve replacement 2 Discussion/recommendations: In October, the patient had hemodynamic assessment cardiac catheterization at [facility] which excluded the presence of obstructive CAD. Elevated right and left filling pressures are noted, and his diuretic therapy had been intensified he is on spironolactone as well as torsemide 40 mg twice a day. The chest x-ray is somewhat difficult to interpret, he does have a history of underlying interstitial changes well, at present, the patient is able to lie supine and was completely comfortable. He seems well compensated from a heart failure standpoint, and he notes that his abdominal fluid retention and lower extremity edema has significantly improved on his intensified dose of torsemide over the last one month interval of time. I read the heart failure note from [facility] last month and based on what I see on his physical exam findings today compared to what the record, he seems to be doing better from a fine status standpoint. He is on chronic amiodarone for suppression of his symptomatic atrial arrhythmias and has undergone ablations on 2 separate occasions. Given chronic amiodarone use, I recommend against the use of antibiotics to prolong the QT interval and therefore I discontinued azithromycin. Recommend an alternative agent to treat atypical pulmonary pathogens. I would personally also recommend against Zosyn because this would require a significant amount of administration of IV fluids, and I think he would become volume overloaded and then would require more intensive diuresis. I will defer the choice of antibiotics to the primary service, but patient does not have a penicillin allergy so transitioning him to cefepime, or adding doxycycline may be options. I would avoid IV fluoroquinolone or macrolide antibiotic. He is currently actually on less intensive diuretic therapy with furosemide 40 mg IV daily compared to his torsemide 40 mg by mouth twice a day, I'm going to place him back on his home regimen. His daily weights and intake and output need to be monitored, and as he is receiving IV antibiotics, we need to keep his intake and output still even or perhaps slightly negative to avoid superimposed heart failure decompensation. He had an echocardiogram today, that revealed stable findings compared to his recent outpatient studies. The right heart is noted to be moderately enlarged with at least moderate RV systolic dysfunction, I think the right heart was much better visualized on this study compared to a study performed at [facility] in 2016. Lucio Xiong DO
[2017-01-10 11:15] VITALS: BP 109/64; PULSE 75; TEMP 36.7; O2SAT 94
--- NOTE | 2017-01-10 12:27 | Clinical Documentation Query ---
QUERY 1 OF [address] SUAREZ, In your clinical opinion is this patient being managed for: ( ) Acute on chronic diastolic CHF ( x ) Other explanation of clinical findings (Please Explain) CHRONIC DIASTOLIC CHF ( ) Unable to determine (Please Define) ( ) Need to Discuss ( ) Not Agree The medical record reflects the following clinical findings, treatment, and risk factors. Clinical Indicators: 61 yo male presenting with increasing dyspnea. Trace to +1 bilateral LE edema. ER impression includes CHF exacerbation. CXR with components of interstitial CHF and small bilateral pleural effusions. BNP 980 Treatment: IV lasix, 1L fluid restriction, I/O, daily wts, tele, O2 support, cardiology consult, ECHO Risk Factors: suspected pneumonia, hx diastolic CHF, CKD stage III, A fib, recent diuretic change at home QUERY 2 OF 2 In your clinical opinion is this patient being managed for: ( x ) Acute and chronic hypoxic respiratory failure ( ) Other explanation of clinical findings (Please Explain) ( ) Unable to determine (Please Define) ( ) Need to Discuss ( ) Not Agree The medical record reflects the following clinical findings, treatment, and risk factors. Clinical Indicators: Pt tachypneic with resp rates 29-33 during ER stay. O2 sat dropping to 88% on 4L, 79% on 4L with ambulation Treatment: IV solumedrol, IV lasix, IV rocephin, IV levaquin, IV azithromycin, tele monitoring, O2 support Risk Factors:pneumonia, CHF, chronic respiratory failure Please clarify and document your clinical opinion in the progress notes and discharge summary. Terms such as "probable", "suspected", "likely", "questionable", "possible", or "still to be ruled out" are acceptable. IF IN AGREEMENT, YOU MUST DOCUMENT ABOVE DIAGNOSTIC STATEMENT IN DAILY PROGRESS NOTES AND DISCHARGE SUMMARY. This document is not part of the patient's record. Thank You, Shira Jones, RN [phone]
[2017-01-10 15:22] VITALS: BP 115/66; PULSE 69; TEMP 36.2; O2SAT 95
[2017-01-10] MEDS ORDERED: METHYLPREDNISOLONE IV 40 MG in SYRINGE 0 ML IV ONE (16:15)
[2017-01-10] MEDS: TORSEMIDE 20 MG TAB PO SCH (16:41)
--- NOTE | 2017-01-10 18:48 | Progress Note ---
Medicine Progress Note Date & Time of Visit: Jan 10, 2017 at 18:48 . Subjective No fever since admission. Persistent cough productive of yellow sputum. Still more dyspneic than baseline. No anginal symptoms. No nausea, vomiting, diarrhea. . Objective Last 8 Hrs Date Time Temp Pulse Resp B/P (MAP) Pulse Ox O2 Delivery O2 Flow Rate FiO2 01/10/17 16:00 Nasal Cannula 4.0 01/10/17 15:22 36.2 69 20 115/66 (82) 95 Nasal Cannula 2.0 01/10/17 12:00 Nasal Cannula 4.0 01/10/17 11:15 36.7 75 18 109/64 (79) 94 Room Air Physical Exam: General- no acute distress Neck- no JVD Lungs- scattered rhonchi, diffuse wheezing Heart- RRR, no gallop appreciated Abdomen- + BS, soft, nontender Extremities- wearing support stockings; 1+ pretibial edema; no calf tenderness Neuro- alert, oriented . Laboratory Results: Last 24 Hours Test 01/09/17 22:56 01/10/17 06:52 Troponin I < 0.015 ng/ml < 0.015 ng/ml White Blood Count 6.99 K/uL Red Blood Count 3.41 M/uL Hemoglobin 10.2 g/dL Hematocrit 31.7 % Mean Corpuscular Volume 93.0 fL Mean Corpuscular Hemoglobin 29.9 pg Mean Corpuscular Hemoglobin Concent 32.2 g/dl Platelet Count 108 K/uL Mean Platelet Volume 8.4 fL Neutrophils (%) (Auto) 94.3 % Lymphocytes (%) (Auto) 3.0 % Monocytes (%) (Auto) 2.3 % Eosinophils (%) (Auto) 0.0 % Basophils (%) (Auto) 0.0 % Neutrophils # (Auto) 6.59 K/uL Lymphocytes # (Auto) 0.21 K/uL Monocytes # (Auto) 0.16 K/uL Eosinophils # (Auto) 0.00 K/uL Basophils # (Auto) 0.00 K/uL RDW Standard Deviation 52.3 fL RDW Coefficient of Variation 15.4 % Immature Granulocyte % (Auto) 0.4 % Immature Granulocyte # (Auto) 0.03 K/uL Prothrombin Time 46.8 SECONDS Prothromb Time International Ratio 4.1 Activated Partial Thromboplast Time 65.7 SECONDS Partial Thromboplastin Ratio 2.5 Sodium Level 140 mmol/L Potassium Level 4.1 mmol/L Chloride Level 105 mmol/L Carbon Dioxide Level 30 mmol/L Anion Gap 5.0 mmol/L Blood Urea Nitrogen 27 mg/dl Creatinine 1.30 mg/dl Est Creatinine Clear Calc Drug Dose 76.6 ml/min Estimated GFR () 68.7 Estimated GFR (Non- 59.3 BUN/Creatinine Ratio 20.9 Random Glucose 140 mg/dl Calcium Level 8.8 mg/dl Total Bilirubin 1.6 mg/dl Aspartate Amino Transf (AST/SGOT) 8 U/L Alanine Aminotransferase (ALT/SGPT) 20 U/L Alkaline Phosphatase 80 U/L Total Protein 7.1 gm/dl Albumin 3.3 gm/dl Globulin 3.8 gm/dl Albumin/Globulin Ratio 0.9 Thyroid Stimulating Hormone (TSH) 0.097 uIu/ml Free Thyroxine 2.07 ng/dl Free Triiodothyronine 2.53 pg/ml Assessment & Plan COUGH / DYSPNEA Apparent tracheobronchitis. No infiltrates on chest x-ray. Sputum culture pending. His azithromycin discontinued because of risk of QT prolongation. Continue ceftriaxone. Resume doxycycline. FEVER Most likely secondary to respiratory tract infection. Check blood cultures to rule out recurrent endocarditis. CHF Chronic left ventricular diastolic heart failure + right ventricular systolic heart failure secondary to pulmonary hypertension. Volume status appears to be stable/improved. Continue usual diuretic therapy. HISTORY OF PAROXYSMAL ATRIAL FIBRILLATION Status post ablation. EKG this morning shows sinus rhythm with PACs. Continue amiodarone and warfarin. CHRONIC HYPOXIC RESPIRATORY FAILURE Underlying pulmonary hypertension. Continue supplemental oxygen. CKD III Serum creatinine stable at 1.3. Follow. VTE PROPHYLAXIS Continue warfarin. Ambulate. DISPOSITION Expected discharge to home. Family Medicine follow-up with Dr. Richards. Cardiology follow-up with Dr. Cardenas, Dr. Rosas, Dr. Hart. . Current Inpatient Medications: Current Inpatient Medications Medications (Trade) Dose Ordered Sig/Neyda Route Start Time Stop Time Status Last Admin Dose Admin Amiodarone HCl (Cordarone Tab) 100 mg DAILY PO 01/10/17 09:00 02/09/17 08:59 01/10/17 08:04 100 MG Levothyroxine Sodium (Synthroid Tab) 50 mcg DAILYBB PO 01/10/17 06:00 02/09/17 06:59 01/10/17 05:21 50 MCG Levothyroxine Sodium (Synthroid Tab) 200 mcg DAILYBB PO 01/10/17 06:00 02/09/17 06:59 01/10/17 05:21 200 MCG Losartan Potassium (coZAAR TAB) 12.5 mg DAILY PO 01/10/17 09:00 02/09/17 08:59 01/10/17 08:04 12.5 MG Metoprolol Succinate (Toprol Xl Tab) 25 mg BID PO 01/09/17 21:00 02/08/17 20:59 01/10/17 08:03 25 MG Potassium Chloride (Klor-Con M10) 10 meq Q2D PO 01/09/17 21:00 02/08/17 20:59 01/09/17 21:31 10 MEQ Spironolactone (Aldactone Tab) 25 mg BID PO 01/09/17 21:00 02/08/17 20:59 01/10/17 08:04 25 MG Ceftriaxone Sodium 1 gm/ Dextrose 50 ml @ 100 mls/hr Q24H IV 01/10/17 20:00 01/16/17 19:59 Guaifenesin/ Dextromethorphan (Robitussin-Dm Syrup) 10 ml Q6H PRN PO 01/09/17 22:30 02/08/17 22:29 01/09/17 22:42 10 ML Torsemide (Demadex Tab) 40 mg BID17 PO 01/10/17 17:00 02/09/17 16:59 01/10/17 16:41 40 MG Doxycycline Hyclate (Vibramycin Cap) 100 mg BID PO 01/10/17 21:00 01/17/17 20:59 Prednisone (PredniSONE TAB) 40 mg DAILY PO 01/11/17 09:00 02/10/17 08:59
[2017-01-10] MEDS: CEFTRIAXONE SOD INJ 1 GM in DEXTROSE 5% ADD-VANTAGE 50ML 50 ML IV SCH (19:32)
[2017-01-10 19:59] VITALS: BP 111/63; PULSE 68; TEMP 36.5; O2SAT 96
[2017-01-10] MEDS: DOXYCYCLINE HYCLATE 100 MG CAP PO SCH (20:31)
[2017-01-10] MEDS: ACETAMINOPHEN 500 MG TAB PO PRN (23:47)
[2017-01-11] VITALS (9 sets, daily range): BP systolic 102–133; BP diastolic 55–72; PULSE 62–90; TEMP 36.2–36.9; O2SAT 94–99
[2017-01-11] MEDS: LEVOTHYROXINE 200 MCG TAB PO SCH (05:49)
[2017-01-11] MEDS: LEVOTHYROXINE 50 MCG TAB PO SCH (05:49)
[2017-01-11 06:07] LABS: HEMATOCRIT 31.5 % (42-52); MEAN CELL VOLUME 95.2 fL (80-100); MEAN CORPUSCULAR HEMOGLOBIN 31.1 pg (25-34); MEAN CORPUSCULAR HGB CONC 32.7 g/dl (32-36); MEAN PLATELET VOLUME 8.6 fL (7.4-10.4); PLATELET COUNT 124 K/uL (130-400); RED BLOOD COUNT 3.31 M/uL (4.7-6.1); WHITE BLOOD COUNT 8.26 K/uL (4.8-10.8)
[2017-01-11 06:40] LABS: INR 4.2 (0.9-1.1); PROTHROMBIN TIME (PATIENT) 47.4 SECONDS (9.0-12.0)
[2017-01-11 06:48] LABS: CALCIUM 8.9 mg/dl (8.5-10.1); CREATININE 1.3 mg/dl (0.60-1.40); POTASSIUM 4.1 mmol/L (3.5-5.1)
[2017-01-11] MEDS: LOSARTAN POTASSIUM 25 MG TAB PO SCH (08:11)
[2017-01-11] MEDS: METOPROLOL SUCC 25MG EXT REL TAB PO SCH ×2 (08:11→20:48)
[2017-01-11] MEDS: TORSEMIDE 20 MG TAB PO SCH ×2 (08:11→17:17)
[2017-01-11] MEDS: SPIRONOLACTONE 25 MG TAB PO SCH ×2 (08:12→20:49)
[2017-01-11] MEDS: AMIODARONE 200 MG TAB PO SCH (08:12)
[2017-01-11] MEDS: DOXYCYCLINE HYCLATE 100 MG CAP PO SCH ×2 (08:12→20:48)
--- NOTE | 2017-01-11 10:42 | Cardiology Follow-Up ---
Subjective General Date of Service: Jan 11, 2017. Chief Complaint: follow up shortness of breath Pt evaluation today including: conversation w/ patient, physical exam History of Present Illness The patient is a 61 year old male seen in cardiology follow-up. He states he feels well. He notes that he still has a productive cough, but he does feel that it has improved to some degree. EKG today reveals stable sinus rhythm with PACs. No atrial fibrillation episodes of significance noted on telemetry reviewed. Allergies Coded Allergies: No Known Allergies (Verified , 01/09/17) Social History Smoking Status: Former Smoker (quit 1978) Hx Tobacco Use In Past Year?: No Hx Alcohol Use - Type And Amou: No Hx Substance Use - Type And Am: No Problem List Medical Problems: (1) Acute and chronic respiratory failure with hypoxia Status: Acute (2) Atrial fibrillation Status: Chronic Surgical Problems: (1) H/O mitral valve replacement Permanent Comment: x 2 for infective endocarditis in 2003 and 2006 Status: Chronic (2) S/P patent foramen ovale closure Status: Chronic Physical Exam Vital Signs Last Vital Signs Documentation Date Time Temp Pulse Resp B/P (MAP) Pulse Ox O2 Delivery O2 Flow Rate FiO2 01/11/17 08:00 Nasal Cannula 4.0 01/11/17 07:55 36.9 63 18 113/64 (80) 98 Physical Exam Constitutional: Level of Distress: NAD Head: normocephalic Neck: supple Lungs: Auscultation: no wheezing, no rales/crackles, no rhonchi Cardiovascular: Heart Auscultation: RRR, no murmurs Extremities: pertinent finding (significant lower extremity edema, knee-high compression stockings in place) Neurologic: Gait & Station: pertinent finding (no focal neurological deficits) Assessment and Plan Assessment and Plan Impression: 1. Cough, chest congestion, low-grade fever, consistent with complicated bronchitis versus community acquired pneumonia 2. History of left ventricular diastolic heart failure, right ventricular failure with RV systolic dysfunction, pulmonary venous/pulmonary arterial hypertension 3. History of stage III CK D 4. History of remote mitral valve endocarditis, with mitral valve replacement 2 Plan: Agree with empiric Rocephin and doxycycline, doxycycline is being administered via the oral route which will minimize IV fluid administration. Agree with oral prednisone. Continue outpatient cardiac medications including home dose of torsemide 40 mg by mouth twice a day his prolactin 25 mg twice a day. Kidney function is stable. INR is above goal today at 4.2, hold Coumadin. DVT prophylaxis: Patient has a supratherapeutic INR, this will be followed. Laboratory Results Last 24 Hours Test 01/11/17 05:38 White Blood Count 8.26 K/uL Red Blood Count 3.31 M/uL Hemoglobin 10.3 g/dL Hematocrit 31.5 % Mean Corpuscular Volume 95.2 fL Mean Corpuscular Hemoglobin 31.1 pg Mean Corpuscular Hemoglobin Concent 32.7 g/dl RDW Standard Deviation 53.6 fL RDW Coefficient of Variation 15.4 % Platelet Count 124 K/uL Mean Platelet Volume 8.6 fL Prothrombin Time 47.4 SECONDS Prothromb Time International Ratio 4.2 Sodium Level 142 mmol/L Potassium Level 4.1 mmol/L Chloride Level 104 mmol/L Carbon Dioxide Level 32 mmol/L Anion Gap 6.0 mmol/L Blood Urea Nitrogen 38 mg/dl Creatinine 1.30 mg/dl Est Creatinine Clear Calc Drug Dose 76.7 ml/min Estimated GFR () 68.7 Estimated GFR (Non- 59.3 BUN/Creatinine Ratio 29.0 Random Glucose 140 mg/dl Calcium Level 8.9 mg/dl
[2017-01-11] MEDS ORDERED: METHYLPREDNISOLONE IV 40 MG in SYRINGE 0 ML IV ONE (13:45)
[2017-01-11] MEDS ORDERED: WARFARIN SOD 2 MG TAB PO SCH (16:00)
[2017-01-11] MEDS: GUAIFENESIN SUGAR FREE 200 MG/10 ML UDC PO SCH ×2 (17:00→20:49)
[2017-01-11] MEDS: CEFTRIAXONE SOD INJ 1 GM in DEXTROSE 5% ADD-VANTAGE 50ML 50 ML IV SCH (20:34)
[2017-01-11] MEDS: POTASSIUM CHLORIDE 10 MEQ TABCR PO SCH (20:48)
--- NOTE | 2017-01-11 21:20 | Progress Note ---
Medicine Progress Note Date & Time of Visit: Jan 11, 2017 at 13:20 . Subjective No fever. Cough improved. Still dyspneic with exertion. No chest pain. No nausea, vomiting, diarrhea. . Objective Last 8 Hrs Date Time Temp Pulse Resp B/P (MAP) Pulse Ox O2 Delivery O2 Flow Rate FiO2 01/11/17 20:46 65 102/59 (73) 01/11/17 20:00 94 Room Air 3.0 01/11/17 19:19 36.2 77 18 103/55 (71) 94 Nasal Cannula 3.0 01/11/17 17:19 90 118/65 (82) 01/11/17 15:24 36.7 64 20 133/63 (86) 99 Nasal Cannula 3.0 01/11/17 15:15 Nasal Cannula 3.0 Physical Exam: General- no distress Neck- no JVD Lungs- diffuse wheezing Heart- RRR Abdomen- + BS, soft, nontender Extremities- wearing support stockings; 1+ pretibial edema; no calf tenderness Neuro- alert, oriented . Laboratory Results: Last 24 Hours Test 01/11/17 05:38 White Blood Count 8.26 K/uL Red Blood Count 3.31 M/uL Hemoglobin 10.3 g/dL Hematocrit 31.5 % Mean Corpuscular Volume 95.2 fL Mean Corpuscular Hemoglobin 31.1 pg Mean Corpuscular Hemoglobin Concent 32.7 g/dl RDW Standard Deviation 53.6 fL RDW Coefficient of Variation 15.4 % Platelet Count 124 K/uL Mean Platelet Volume 8.6 fL Prothrombin Time 47.4 SECONDS Prothromb Time International Ratio 4.2 Sodium Level 142 mmol/L Potassium Level 4.1 mmol/L Chloride Level 104 mmol/L Carbon Dioxide Level 32 mmol/L Anion Gap 6.0 mmol/L Blood Urea Nitrogen 38 mg/dl Creatinine 1.30 mg/dl Est Creatinine Clear Calc Drug Dose 76.7 ml/min Estimated GFR () 68.7 Estimated GFR (Non- 59.3 BUN/Creatinine Ratio 29.0 Random Glucose 140 mg/dl Calcium Level 8.9 mg/dl Assessment & Plan COUGH / DYSPNEA Apparent tracheobronchitis. No infiltrates on chest x-ray. Sputum culture pending. Continue doxycycline and ceftriaxone. FEVER Most likely secondary to respiratory tract infection. Blood cultures obtained to rule out recurrent endocarditis. CHF Chronic left ventricular diastolic heart failure + right ventricular systolic heart failure secondary to pulmonary hypertension. Volume status appears to be stable/improved. Continue usual diuretic therapy. HISTORY OF PAROXYSMAL ATRIAL FIBRILLATION Status post ablation. EKG this morning shows sinus rhythm with PACs. Continue amiodarone and warfarin. CHRONIC HYPOXIC RESPIRATORY FAILURE Underlying pulmonary hypertension. Continue supplemental oxygen. CKD III Serum creatinine stable at 1.3. Follow. VTE PROPHYLAXIS Continue warfarin. Ambulate. DISPOSITION Expected discharge to home. Family Medicine follow-up with Dr. Richards. Cardiology follow-up with Dr. Cardenas, Dr. Rosas, Dr. Hart. . Current Inpatient Medications: Current Inpatient Medications Medications (Trade) Dose Ordered Sig/Neyda Route Start Time Stop Time Status Last Admin Dose Admin Amiodarone HCl (Cordarone Tab) 100 mg DAILY PO 01/10/17 09:00 02/09/17 08:59 01/11/17 08:12 100 MG Levothyroxine Sodium (Synthroid Tab) 50 mcg DAILYBB PO 01/10/17 06:00 02/09/17 06:59 01/11/17 05:49 50 MCG Levothyroxine Sodium (Synthroid Tab) 200 mcg DAILYBB PO 01/10/17 06:00 02/09/17 06:59 01/11/17 05:49 200 MCG Losartan Potassium (coZAAR TAB) 12.5 mg DAILY PO 01/10/17 09:00 02/09/17 08:59 01/11/17 08:11 12.5 MG Metoprolol Succinate (Toprol Xl Tab) 25 mg BID PO 01/09/17 21:00 02/08/17 20:59 01/11/17 20:48 25 MG Potassium Chloride (Klor-Con M10) 10 meq Q2D PO 01/09/17 21:00 02/08/17 20:59 01/11/17 20:48 10 MEQ Spironolactone (Aldactone Tab) 25 mg BID PO 01/09/17 21:00 02/08/17 20:59 01/11/17 20:49 25 MG Ceftriaxone Sodium 1 gm/ Dextrose 50 ml @ 100 mls/hr Q24H IV 01/10/17 20:00 01/16/17 19:59 01/11/17 20:34 100 MLS/HR Guaifenesin/ Dextromethorphan (Robitussin-Dm Syrup) 10 ml Q6H PRN PO 01/09/17 22:30 02/08/17 22:29 01/09/17 22:42 10 ML Torsemide (Demadex Tab) 40 mg BID17 PO 01/10/17 17:00 02/09/17 16:59 01/11/17 17:17 40 MG Doxycycline Hyclate (Vibramycin Cap) 100 mg BID PO 01/10/17 21:00 01/17/17 20:59 01/11/17 20:48 100 MG Warfarin Sodium (Coumadin Tab) 2 mg DAILY@16 PO 01/11/17 16:00 02/10/17 15:59 Future hold Acetaminophen (Tylenol Tab) 500 mg HS PRN PO 01/10/17 23:45 02/09/17 23:44 01/10/17 23:47 500 MG Diphenhydramine HCl (Benadryl Cap) 25 mg HS PRN PO 01/10/17 23:45 02/09/17 23:44 01/10/17 23:47 25 MG Guaifenesin (Robitussin Sugar Free Syrup) 200 mg QID PO 01/11/17 17:00 02/10/17 16:59 Prednisone (PredniSONE TAB) 40 mg DAILY PO 01/12/17 09:00 02/11/17 08:59
[2017-01-12] VITALS: O2SAT 94
[2017-01-12] MEDS: ACETAMINOPHEN 500 MG TAB PO PRN (00:01)
[2017-01-12 00:11] VITALS: BP 108/64; PULSE 61; TEMP 36.4; O2SAT 94
[2017-01-12 04:00] VITALS: BP 107/63; PULSE 54; TEMP 36.4; O2SAT 97
[2017-01-12] MEDS: LEVOTHYROXINE 200 MCG TAB PO SCH (06:15)
[2017-01-12] MEDS: LEVOTHYROXINE 50 MCG TAB PO SCH (06:16)
[2017-01-12 07:46] VITALS: BP 107/69; PULSE 66; TEMP 36.6; O2SAT 96
[2017-01-12 07:50] LABS: BUN/CREATININE RATIO 27.7 (10-20); CREATININE 1.5 mg/dl (0.60-1.40); POTASSIUM 3.9 mmol/L (3.5-5.1)
--- NOTE | 2017-01-12 08:02 | Cardiology Follow-Up ---
Subjective General Date of Service: Jan 12, 2017. Chief Complaint: follow up shortness of breath Pt evaluation today including: conversation w/ patient, physical exam History of Present Illness The patient is a 61 year old male seen in follow up. Pt feels well. Still has cough, which interfered with his sleep last night, but respiratory status is otherwise stable. Allergies Coded Allergies: No Known Allergies (Verified , 01/09/17) Social History Smoking Status: Former Smoker (quit 1978) Hx Tobacco Use In Past Year?: No Hx Alcohol Use - Type And Amou: No Hx Substance Use - Type And Am: No Problem List Medical Problems: (1) Acute and chronic respiratory failure with hypoxia Status: Acute (2) Atrial fibrillation Status: Chronic Surgical Problems: (1) H/O mitral valve replacement Permanent Comment: x 2 for infective endocarditis in 2003 and 2006 Status: Chronic (2) S/P patent foramen ovale closure Status: Chronic Physical Exam Vital Signs Last Vital Signs Documentation Date Time Temp Pulse Resp B/P (MAP) Pulse Ox O2 Delivery O2 Flow Rate FiO2 01/12/17 07:46 36.6 66 20 107/69 (82) 96 Nasal Cannula 2.0 Physical Exam Constitutional: Level of Distress: NAD Head: normocephalic Neck: supple Lungs: Auscultation: no wheezing, no rales/crackles, no rhonchi Cardiovascular: Heart Auscultation: RRR, no murmurs Extremities: pertinent finding (significant lower extremity edema, knee-high compression stockings in place) Neurologic: Gait & Station: pertinent finding (no focal neurological deficits) Assessment and Plan Assessment and Plan Impression: 1. Cough, chest congestion, low-grade fever, consistent with complicated bronchitis versus community acquired pneumonia 2. History of left ventricular diastolic heart failure, right ventricular failure with RV systolic dysfunction, pulmonary venous/pulmonary arterial hypertension 3. History of stage III CK D 4. History of remote mitral valve endocarditis, with mitral valve replacement 2 5. Coagulopathy Plan: Creatinine has trended up to 1.5 mg / dl. Above admission level, he was 1.9 a few weeks ago as outpatient. Recommend we administer his am torsemide and spironolactone this am, 01/12/17, and hold the PM doses 01/12/17. Await INR, level likely up due to antibiotic exposure, change in diet. He is stable for DC from heart failure standpoint, and bronchitis standpoint per my impression, however, we need to get the INR back which is pending to determine next step with coumadin. If INR is stable for outpt management, plan to discharge today with holding pm torsemide and spironolactone dose today, and resume in am as outpt on 01/13/17. If pt remains in hospital, plan to hold diuretic until am chem panel results available on 01/13/17. I will be rounding on the weekend. Lucio Xiong, Laboratory Results Last 24 Hours Test 01/12/17 06:52 Sodium Level 141 mmol/L Potassium Level 3.9 mmol/L Chloride Level 105 mmol/L Carbon Dioxide Level 32 mmol/L Anion Gap 4.0 mmol/L Blood Urea Nitrogen 41 mg/dl Creatinine 1.50 mg/dl Est Creatinine Clear Calc Drug Dose 66.5 ml/min Estimated GFR () 57.8 Estimated GFR (Non- 49.9 BUN/Creatinine Ratio 27.7 Random Glucose 117 mg/dl Calcium Level 9.0 mg/dl
[2017-01-12] MEDS: TORSEMIDE 20 MG TAB PO SCH (08:55)
[2017-01-12] MEDS: DOXYCYCLINE HYCLATE 100 MG CAP PO SCH (08:56)
[2017-01-12] MEDS: METOPROLOL SUCC 25MG EXT REL TAB PO SCH (08:56)
[2017-01-12] MEDS: LOSARTAN POTASSIUM 25 MG TAB PO SCH (08:56)
[2017-01-12] MEDS: AMIODARONE 200 MG TAB PO SCH (08:56)
[2017-01-12] MEDS: GUAIFENESIN SUGAR FREE 200 MG/10 ML UDC PO SCH ×2 (08:57→13:00)
[2017-01-12] MEDS: SPIRONOLACTONE 25 MG TAB PO SCH (09:08)
[2017-01-12 10:07] LABS: INR 5.2 (0.9-1.1); PROTHROMBIN TIME (PATIENT) 59.1 SECONDS (9.0-12.0)
[2017-01-12 11:36] VITALS: BP 120/73; PULSE 62; TEMP 36.3; O2SAT 97
--- NOTE | 2017-01-12 13:42 | Progress Note ---
Medicine Progress Note Date & Time of Visit: Jan 12, 2017 at 13:42 . Subjective Better. No fever since admission. Cough improved, now minimally productive. Dyspnea improved- approaching baseline. Lower extremity edema at recent baseline. No chest pain. No nausea, vomiting, diarrhea. . Objective Last 8 Hrs Date Time Temp Pulse Resp B/P (MAP) Pulse Ox O2 Delivery O2 Flow Rate FiO2 01/12/17 12:00 Nasal Cannula 3.0 01/12/17 11:36 36.3 62 18 120/73 (89) 97 Nasal Cannula 2.0 01/12/17 08:00 Nasal Cannula 3.0 01/12/17 07:46 36.6 66 20 107/69 (82) 96 Nasal Cannula 2.0 Physical Exam: General- no distress Neck- no JVD Lungs- minimal wheezing Heart- RRR Abdomen- + BS, soft, nontender Extremities- wearing support stockings; 1+ pretibial edema; no calf tenderness Neuro- alert, oriented . Laboratory Results: Last 24 Hours Test 01/12/17 06:52 01/12/17 09:15 Sodium Level 141 mmol/L Potassium Level 3.9 mmol/L Chloride Level 105 mmol/L Carbon Dioxide Level 32 mmol/L Anion Gap 4.0 mmol/L Blood Urea Nitrogen 41 mg/dl Creatinine 1.50 mg/dl Est Creatinine Clear Calc Drug Dose 66.5 ml/min Estimated GFR () 57.8 Estimated GFR (Non- 49.9 BUN/Creatinine Ratio 27.7 Random Glucose 117 mg/dl Calcium Level 9.0 mg/dl Prothrombin Time 59.1 SECONDS Prothromb Time International Ratio 5.2 Assessment & Plan ACUTE ON CHRONIC HYPOXIC RESPIRATORY FAILURE Chronic respiratory failure on home O2 4 LPM, due to underlying CHF and pulmonary hypertension. Acute worsening with increasing dyspnea and RR as high as 33 in ED. After evaluation, appears that worsening respiratory status primarily due to bronchitis superimposed on chronic underlying cardiopulmonary disease. O2 sat 96 - 97% on 2 - 3 LPM day of discharge. COUGH / DYSPNEA Apparent tracheobronchitis. No infiltrates on chest x-ray. Sputum culture pending. Received doxycycline, ceftriaxone, and steroids with improvement. Discharge on doxycycline 100 bid + prednisone 40 mg daily for 4 more days. FEVER Most likely secondary to respiratory tract infection. Blood cultures obtained to rule out recurrent endocarditis and were negative. CHF Chronic left ventricular diastolic heart failure + right ventricular systolic heart failure secondary to pulmonary hypertension. Echo showed flattened septum with septal hypokinesis consistent with RV pressure / volume overload, LVEF 50-55%, RV moderately dilated, RV sys function moderately reduced, LA severely dilated, bioprosthetic mitral valve without significant MR, suspected pulmonary hypertension. Volume status appears to be stable/improved compared to a few weeks ago. Continue usual diuretic therapy. HISTORY OF PAROXYSMAL ATRIAL FIBRILLATION Status post ablation. EKG this morning shows sinus rhythm with PACs. Continue amiodarone and warfarin. CKD III Serum creatinine stable at 1.3. Follow. VTE PROPHYLAXIS Continue warfarin. Ambulate. DISPOSITION Expected discharge to home. Family Medicine follow-up with Dr. Richards. Cardiology follow-up with Dr. Cardenas and Dr. Hart. . Consultants: Cardiology echo cardiac monitoring IV meds . Current Inpatient Medications: Current Inpatient Medications Medications (Trade) Dose Ordered Sig/Neyda Route Start Time Stop Time Status Last Admin Dose Admin Amiodarone HCl (Cordarone Tab) 100 mg DAILY PO 01/10/17 09:00 02/09/17 08:59 01/12/17 08:56 100 MG Levothyroxine Sodium (Synthroid Tab) 50 mcg DAILYBB PO 01/10/17 06:00 02/09/17 06:59 01/12/17 06:16 50 MCG Levothyroxine Sodium (Synthroid Tab) 200 mcg DAILYBB PO 01/10/17 06:00 02/09/17 06:59 01/12/17 06:15 200 MCG Losartan Potassium (coZAAR TAB) 12.5 mg DAILY PO 01/10/17 09:00 02/09/17 08:59 01/12/17 08:56 12.5 MG Metoprolol Succinate (Toprol Xl Tab) 25 mg BID PO 01/09/17 21:00 02/08/17 20:59 01/12/17 08:56 25 MG Potassium Chloride (Klor-Con M10) 10 meq Q2D PO 01/09/17 21:00 02/08/17 20:59 01/11/17 20:48 10 MEQ Spironolactone (Aldactone Tab) 25 mg BID PO 01/09/17 21:00 02/08/17 20:59 Future Hold 01/12/17 09:08 25 MG Ceftriaxone Sodium 1 gm/ Dextrose 50 ml @ 100 mls/hr Q24H IV 01/10/17 20:00 01/16/17 19:59 01/11/17 20:34 100 MLS/HR Guaifenesin/ Dextromethorphan (Robitussin-Dm Syrup) 10 ml Q6H PRN PO 01/09/17 22:30 02/08/17 22:29 01/09/17 22:42 10 ML Torsemide (Demadex Tab) 40 mg BID17 PO 01/10/17 17:00 02/09/17 16:59 Future Hold 01/12/17 08:55 40 MG Doxycycline Hyclate (Vibramycin Cap) 100 mg BID PO 01/10/17 21:00 01/17/17 20:59 01/12/17 08:56 100 MG Warfarin Sodium (Coumadin Tab) 2 mg DAILY@16 PO 01/11/17 16:00 02/10/17 15:59 Future hold Acetaminophen (Tylenol Tab) 500 mg HS PRN PO 01/10/17 23:45 02/09/17 23:44 01/12/17 00:01 500 MG Diphenhydramine HCl (Benadryl Cap) 25 mg HS PRN PO 01/10/17 23:45 02/09/17 23:44 01/12/17 00:01 25 MG Guaifenesin (Robitussin Sugar Free Syrup) 200 mg QID PO 01/11/17 17:00 02/10/17 16:59 Prednisone (PredniSONE TAB) 40 mg DAILY PO 01/12/17 09:00 02/11/17 08:59 01/12/17 08:56 40 MG
[2017-01-12] MEDS ORDERED: PRD10 PO (13:47)
--- NOTE | 2017-01-12 13:54 | Discharge Instructions ---
Discharge Instructions Date of Service Jan 12, 2017. Admission Reason for Admission: shortness of breath . Discharge Discharge Diagnosis / Problem: bronchitis Discharge Goals Goal(s): Improve function, Improve disease control Activity Recommendations Activity Limitations: resume your previous activity . Instructions / Follow-Up Instructions / Follow-Up FOLLOW-UP APPOINTMENTS FAMILY MEDICINE 01/15/2017 11:00 AM Stefani Andrews DO (covering for Dr. Richards) MEDICATION CHANGES Take doxycycline 100 mg twice a day for 4 more days, then stop it even if you have pills left. Prednisone 10 mg pills, take 4 pills daily for 4 days. Warfarin (Coumadin) INR was running high. It was 5.2 on 01/12. Hold warfarin on Sunday and Sunday. Start reduced dose of 2 mg daily on Sunday. Have INR checked early next week. Further instructions according to Anticoagulation Clinic. OTHER INSTRUCTIONS: Continue oxygen 4 liters / minute. Seek medical attention if you have: * temperature above 101 * chest pain or worsening breathing * abdominal pain, nausea, vomiting * diarrhea, dark stools or bloody stools * any unanswered questions or concerns Call 911 if symptoms are severe. Call if you have any questions or problems. My cell # is [phone]. You can also reach a [facility] hospitalist on duty at [facility] 24 hours a day by calling [phone]. Please take good care of yourself. Marshall Robin . Current Hospital Diet Patient's current hospital diet: Low Sodium Diet (2gm Na) Discharge Diet Recommended Diet: AHA Diet (Heart Healthy) Pending Studies Studies pending at discharge: no Medical Emergencies . Who to Call and When: Medical Emergencies: If at any time you feel your situation is an emergency, please call 911 immediately. . Non-Emergent Contact Non-Emergency issues call your: Primary Care Provider, Radiology Rn, Hospital Doctor . . "Provider Documentation" section prepared by Marshall Robin. . VTE Core Measure Inpt VTE Proph given/why not?: Warfarin (Coumadin)
[2017-01-12 14:02] VITALS: BP 120/73; PULSE 62; TEMP 36.3; O2SAT 97
--- NOTE | 2017-01-13 12:53 | Discharge Summary ---
Discharge Summary Date of Service Jan 13, 2017. Discharge Summary Admission Date: Jan 09, 2017 at 19:29 Discharge Date: Jan 12, 2017 Discharge Disposition: Home Principal Diagnosis: acute on chronic hypoxic respiratory failure bronchitis . Secondary Diagnoses/Problems: Chronic and Resolved Medical Problems: (1) Atrial fibrillation Status: Chronic (2) Chronic hypoxemic respiratory failure Status: Chronic (3) Endocarditis of mitral valve Status: Chronic (4) GERD (gastroesophageal reflux disease) Status: Chronic (5) H/O transesophageal echocardiography (VA) for monitoring Permanent Comment: 09/06/15 - EF 55-59%, prosthetic mitral valve function Status: Chronic (6) History of cardioversion Permanent Comment: multiple times for atrial fibrillation Status: Chronic (7) Hypothyroidism Status: Chronic (8) Left atrial appendage closure Status: Chronic (9) Pulmonary hypertension Permanent Comment: Severe on cardiac catheterization 10/2016 Status: Chronic (10) Restrictive lung disease Status: Chronic (11) Thrombocytopenia Status: Chronic Surgical Problems: (1) H/O exploratory thoracotomy Status: Chronic (2) H/O inguinal hernia repair Status: Chronic (3) H/O mitral valve replacement Permanent Comment: x 2 for infective endocarditis in 2003 and 2006 Status: Chronic (4) S/P patent foramen ovale closure Status: Chronic (5) Status post ablation of atrial fibrillation Permanent Comment: x 2, most recently 09/06/15 Status: Chronic . Procedures: cardiac monitoring IV meds echo . Consultations: Cardiology . Medication Reconciliation New Medications: Prednisone (Prednisone) 10 Mg Tab 40 MG PO DAILY for 4 Days, #16 TAB Continued Medications: Acetaminophen (Acetaminophen) 500 Mg Tab 1000 TAB PO Q6 PRN for Pain or Fever for 15 Days, TAB Amiodarone Hcl (Cordarone) 200 Mg Tab 100 MG PO DAILY, TAB Amoxicillin (Amoxicillin) 500 Mg Cap 500 MG PO UD Take 4 capsules by mouth 1 hour before dental procedures. Clonazepam (Klonopin) 1 Mg Tab 1 MG PO HS PRN for Anxiety, TAB Doxycycline Hyclate (Doxycycline Hyclate) 100 Mg Cap 100 MG PO BID New instructions 01/12/17: take twice a day for 4 more days, then stop Home O2 Therapy (Oxygen) Gas 4 LITERS NA CONTINOUS, BTL Levothyroxine Sodium (Levothyroxine Sodium) 25 Mcg Tab 50 MCG PO DAILY, TAB TAKE TWO 25 MCG TABLETS ALONG WITH ONE 200 MCG TABLET TO EQUAL DAILY DOSE OF 250 MCG. Levothyroxine Sodium (Levothyroxine Sodium) 200 Mcg Tab 200 MCG PO DAILY, TAB TAKE ONE 200 MCG TABLET ALONG WITH TWO 25 MCG TABLETS TO EQUAL DAILY DOSE OF 250 MCG. Losartan Potassium (Losartan Potassium) 25 Mg Tab 12.5 MG PO DAILY Metoprolol Succinate (Toprol Xl) 50 Mg Tabcr 25 MG PO BID, TAB Potassium Chloride (Micro-K Ext Rel) 10 Meq Capcr 10 MEQ PO Q2D, CAP Spironolactone (Aldactone) 25 Mg Tab 25 MG PO BID, 0 Refills Torsemide (Demadex) 20 Mg Tab 40 MG PO BID, TAB Warfarin Sod (Jantoven) 2 Mg Tab 0 PO UD, TAB New instructions 01/12/17: hold 01/12 and 01/13 start 2 mg daily on 01/14 further instructions as directed Admission Information HPI (per Admitting provider): This is a 61 year old male with PMH of pulmonary hypertension, atrial fibrillation, h/o endocarditis s/p bioprosthetic mitral valve replacement, chronic hypoxemic respiratory failure, hypothyroidism, and other problems listed below who presents to the ED with dyspnea. Patient reports chest congestion starting 2-3 days ago with associated cough with yellow sputum and fevers (Tmax 100.6). Patient was seen in clinic by Dr. Andrews yesterday, labs were done including blood cultures, and pt was started on doxycycline- took 2 doses without improvement. He was re-evaluated by Dr. Andrews today who sent him to the ED. He reports insomnia. Chronically sleeps on his side with 1 pillow (unchanged). Has gradually worsening WEBER over past 3 months. Becomes dyspneic with ambulating approx 200 ft or climbing 1-2 flights of stairs. Has been lightheaded on ambulation. Has been voiding well. Compliant with diuretics and sodium/ fluid restriction. He denies any nasal congestion, sore throat, chest pain, palpitations, syncope, increasing LE edema, weight gain. His Lasix was recently changed to torsemide. For cardiology patient has followed with Dr. Weiner, Dr. Hart, and Dr. Cardenas. Sees Dr. Wilder for pulm. Recent cardiac cath showed severe pulmonary HTN and coronary arteries without obstructive disease. Echo 10/2016 showed preserved EF. Patient was reviewed and discussed in 12/29/2016 Advanced Lung Disease Conference whose impression was that patient has Group 2 pulmonary HTN. Sleep study was recommended and is scheduled for later this month. . Physical Exam (per Admitting): General Appearance: WD/WN, no apparent distress, + pertinent finding ( significant other at bedside) Head: normocephalic, atraumatic Eyes: normal inspection, sclerae normal ENT: normal ENT inspection, hearing grossly normal Neck: supple, no JVD, trachea midline Respiratory/Chest: no accessory muscle use, + decreased breath sounds, + pertinent finding (mildly increased work of breathing, but able to speak full sentences. no wheezing, rhonchi, or crackles. saturating well on 4 liters NC) Cardiovascular: + irregularly irregular (rate 70's), + pertinent finding ( murmur not appreciated) Abdomen/GI: non tender, soft Extremities/Musculoskelatal: no calf tenderness, + pertinent finding (1+ bilateral LE edema. venous stasis changes bilateral LE. ) Neurologic/Psych: alert, normal mood/affect, oriented x 3, + pertinent finding (grossly without focal deficit) Skin: normal color, warm/dry Hospital Course ACUTE ON CHRONIC HYPOXIC RESPIRATORY FAILURE Chronic respiratory failure on home O2 4 LPM, due to underlying CHF and pulmonary hypertension. Acute worsening with increasing dyspnea and RR as high as 33 in ED. After evaluation, appears that worsening respiratory status primarily due to bronchitis superimposed on chronic underlying cardiopulmonary disease. O2 sat 96 - 97% on 2 - 3 LPM day of discharge. COUGH / DYSPNEA Apparent tracheobronchitis. No infiltrates on chest x-ray. Sputum culture pending. Received doxycycline, ceftriaxone, and steroids with improvement. Discharge on doxycycline 100 bid + prednisone 40 mg daily for 4 more days. FEVER Most likely secondary to respiratory tract infection. Blood cultures obtained to rule out recurrent endocarditis and were negative. CHF Chronic left ventricular diastolic heart failure + right ventricular systolic heart failure secondary to pulmonary hypertension. Echo showed flattened septum with septal hypokinesis consistent with RV pressure / volume overload, LVEF 50-55%, RV moderately dilated, RV sys function moderately reduced, LA severely dilated, bioprosthetic mitral valve without significant MR, suspected pulmonary hypertension. Volume status appears to be stable/improved compared to a few weeks ago. Continue usual diuretic therapy. HISTORY OF PAROXYSMAL ATRIAL FIBRILLATION Status post ablation. EKG this morning shows sinus rhythm with PACs. Continue amiodarone and warfarin. CKD III Serum creatinine stable at 1.3. Follow. VTE PROPHYLAXIS Continue warfarin. Ambulate. DISPOSITION Expected discharge to home. Family Medicine follow-up with Dr. Richards. Cardiology follow-up with Dr. Cardenas and Dr. Hart. . Total time spent on discharge = 40 min. This includes examination of the patient, discharge planning, medication reconciliation, and communication with other providers. . Discharge Instructions Date of Service Jan 12, 2017. Admission Reason for Admission: shortness of breath . Discharge Discharge Diagnosis / Problem: bronchitis Discharge Goals Goal(s): Improve function, Improve disease control Activity Recommendations Activity Limitations: resume your previous activity . Instructions / Follow-Up Instructions / Follow-Up FOLLOW-UP APPOINTMENTS FAMILY MEDICINE 01/15/2017 11:00 AM Stefani Andrews DO (covering for Dr. Richards) MEDICATION CHANGES Take doxycycline 100 mg twice a day for 4 more days, then stop it even if you have pills left. Prednisone 10 mg pills, take 4 pills daily for 4 days. Warfarin (Coumadin) INR was running high. It was 5.2 on 01/12. Hold warfarin on Sunday and Sunday. Start reduced dose of 2 mg daily on Sunday. Have INR checked early next week. Further instructions according to Anticoagulation Clinic. OTHER INSTRUCTIONS: Continue oxygen 4 liters / minute. Seek medical attention if you have: * temperature above 101 * chest pain or worsening breathing * abdominal pain, nausea, vomiting * diarrhea, dark stools or bloody stools * any unanswered questions or concerns Call 911 if symptoms are severe. Call if you have any questions or problems. My cell # is [phone]. You can also reach a [facility] hospitalist on duty at [facility] 24 hours a day by calling [phone]. Please take good care of yourself. Marshall Robin . Current Hospital Diet Patient's current hospital diet: Low Sodium Diet (2gm Na) Discharge Diet Recommended Diet: AHA Diet (Heart Healthy) Pending Studies Studies pending at discharge: no Medical Emergencies . Who to Call and When: Medical Emergencies: If at any time you feel your situation is an emergency, please call 911 immediately. . Non-Emergent Contact Non-Emergency issues call your: Primary Care Provider, Professional Services Specialist, Hospital Doctor . . "Provider Documentation" section prepared by Marshall C Coppes. . VTE Core Measure Inpt VTE Proph given/why not?: Warfarin (Coumadin) . Additional Copies To Piero Cardenas M.D.; Tacos Richards M.D.
== END 2017-01-12 14:48 | disposition home or self-care (01) | DRG 189 ==
LOC: C.EDB 15:28 → C.2T 19:29 → ENRESERV 20:06 → C.2T 01-10 16:11
PROVIDERS: ADMIT Hospitalist; ATTEND Hospitalist
DX: J96.21 Acute and chronic respiratory failure with hypoxia (principal); I13.0 Hypertensive heart and chronic kidney disease with heart failure and stage 1 through stage 4 chronic kidney disease, or unspecified chronic kidney disease; I50.40 Unspecified combined systolic (congestive) and diastolic (congestive) heart failure; I27.2 Other secondary pulmonary hypertension; J40 Bronchitis, not specified as acute or chronic; I48.91 Unspecified atrial fibrillation; N18.3 Chronic kidney disease, stage 3 (moderate); E03.9 Hypothyroidism, unspecified; I25.10 Atherosclerotic heart disease of native coronary artery without angina pectoris; Z95.2 Presence of prosthetic heart valve; Z87.891 Personal history of nicotine dependence; Z99.81 Dependence on supplemental oxygen; Z79.01 Long term (current) use of anticoagulants; Z79.2 Long term (current) use of antibiotics; Z79.899 Other long term (current) drug therapy; Z82.49 Family history of ischemic heart disease and other diseases of the circulatory system; Z83.49 Family history of other endocrine, nutritional and metabolic diseases

== ENCOUNTER → 2017-01-28 | Outpatient (CLI) | payer BC, OTHER ==
[~2017-01-28] MED LIST changes: -ACET-1256 PO; +ACET500T57 PO; +AMX500 PO; +CLON1TAB3 PO; -CMD2 PO; -CRFL PO; +CZR25 PO; -DEXTCAP23 PO; +DXY100 PO; -FRS/40 PO; -METO25TA3 PO; +OXGN; +POTA10CA28 PO; +PRD10 PO; -PRLSR20 PO; +TORS20TA2 PO; +WARF2TAB8 PO
--- NOTE | 2017-01-29 06:18 | PAP/PSG TECHNICIAN REPORT ---
[facility] Drycleaner Polysomnogram Report Study name: None Report date: 01/29/2017 Study date: 01/28/2017 Referring Physician: Sushant CHARLES M.D. Name: BARBER RANGEL Interpreting Physician: Chris Charles M.D. Date of : 1955 Drycleaner: Loco Forbes RPSGT. Sex: Male Age: 62 StudyType: PSG Weight: 254 lbs 17.5 inches Height: 62 years, Height 5' 11.5" Neck Circum: BMI: 34.93 Medications: LEVOXY 50 MCG, LASIX 80 MG, COZAAR 25 MG, CORDARONE 200 MG, COUMADIN 2 MG, OXYGEN, KLONOPIN 1 MG, TOPROL XL 25 MG, ALDACTONE 25 MG, AMOXICILLIN 500 MG Patient History PATIENT HAD A SLEEP STUDY DONE IN 2010 AND HAD AN AHI OF 3/HR. HE CURRENTLY WEARS 4L/MIN OF SUPPLEMENTAL OXYGEN 24/7. HE HAS HISTORY OF SNORING, FATIGUE, AFIB AND DAYTIME SLEEPINESS. HE IS HERE TODAY FOR AN EVALUATION FOR LUCY. ESS = 4 RM 8 Parameters Monitored NPSG: E1-M2, E2-M1, Fp1-M2, Fp2-M1, F3-M2, F4-M2, F4-M1, C3-M2, C4-M2, C4-M1, O1-M2, O2-M2, O2-M1, T3-M2, T4-M1, P3-M2, P4-M1, CHIN1, CHIN2, HR, EKG, Legs, PFLOW, SNOR, FLOW, CFLOW, Tidal Volume, THOR, ABDO, SpO2, PLTH, CPRESS, ETCO2 Wave, ETCO2, pH Sleep Architecture Sleep Stages Time at Lights Off 10:04:01 PM STAGES Time (min.) TST (%) Time at Lights On 5:29:01 AM Wake 61.5 -- Total Recording Time (TRT) 445.50 min. N1 28.0 7 Total Sleep Period (TSP) 434.0 min. N2 265.5 69 Total Sleep Time (TST) 383.5min. N3 0.0 0 Awake Time 61.5 min. REM 90.0 23 Wake after Sleep Onset 50.5 min. Sleep Efficiency (SE) 86 % Sleep Onset Latency (MARIA LUZ) 11.0 min. Number of Stage 1 Shifts None Awakenings 25 Stage Changes 92 Number of REM periods 11 REM 90.0 23 REM Latency 25.5 min. NREM 293.5 77 Body Position Analysis Supine Right Left Side Prone Vertical Total Sleep Time (min.) 0.9 246.9 136.6 383.50 0.0 0.0 Total Sleep Time (%) 0% 64% 36% 100 0% N/A% Total Sleep Time REM (min.) 0.0 82.0 8.0 None 0.0 0.0 Total Sleep Time NREM (min.) 0.0 164.9 128.6 None 0.0 0.0 Intermittent Wake (min.) 0.9 39.3 21.2 None 0.0 0.0 Total Sleep Period (%) 0% None None None None None Arousals Myoclonus (PLM) * Events Count Index Events Count Index Spontaneous 20 3 Events Awake (PLMW) 81 79.0 Respiratory 1 0.2 Events Asleep w/ Arousal (PLMA) 1 0.2 PLM 1 0 Events Asleep w/o Arousal (PLMS) 333 52.1 Snoring 1 0 Total Asleep 334 52.3 Total 23 4 Total 415 56 Respiratory Analysis * CA OA MA CH H RERA Total Count 0 0 0 0 11 1 11 Index 0.0 0.0 0.0 0 1.7 0 1.9 Mean Duration 0.0 0.0 0.0 0.00 32.4 19.3 31.3 Longest Duration 0.0 0.0 0.0 0.00 0.0 19.3 45.9 Respiratory Event Summary Total Supine ~Supine Right Left Prone REM NREM Apneas Count 0 N/A 0 0 0 N/A 0 0 Index 0.0 N/A 0 0.0 0.0 N/A 0 0 Hypopneas (4% Desat) Count 11 N/A 11 11 0 N/A 10 1 Index 1.7 N/A 2 2.7 0.0 N/A 6.7 0.2 Apneas & All Hypopneas Count 11 N/A 11 11 0 N/A 10 1 Index 1.7 N/A 2 3 0 N/A 6.7 0.2 Respiratory Events (Hyperbaric Technician+All Hyp+RERA) Count 11 N/A 12 12 0 N/A 10 1 Index 1.9 N/A 2 2.9 0.0 N/A 7.3 0.2 Respiratory Related Arousal Count 1 N/A 1 1 0 N/A 1 0 Index 0.2 N/A 0 0 0 N/A 1 0 Snoring Analysis Supine Right Left Prone REM NREM Total Snore duration 1.0 min Snores count N/A 16 3 N/A 7 12 19 Snore mean duration 3.3 Sec Snores index N/A 4 1 N/A 4.7 2.5 3.0 TST with snoring (%) 0.3% Desaturation Event Summary: Minimum %SpO2 Event Count Mean/Min/Max Duration(sec.) Desaturation Index % Time In Bed > 90 10 60.0 / 30.5 / 93.2 1.6 84.7 86 - 90 3 50.3 / 30.5 / 64.4 2.8 14.4 81 - 85 0 N/A 0.0 0.9 76 - 80 0 N/A 0.0 0.0 71 - 75 0 N/A 0.0 0.0 66 - 70 0 N/A 0.0 0.0 61 - 65 0 N/A 0.0 0.0 56 - 60 0 N/A 0.0 0.0 51 - 55 0 N/A 0.0 0.0 < 50 0 N/A 0.0 0.0 Total REM NREM Awake <50% 0.0 min. 0.0 min. 0.0 min. 0.0 min. 51 - 60% 0.0 min. 0.0 min. 0.0 min. 0.0 min. 61 - 70% 0.0 min. 0.0 min. 0.0 min. 0.0 min. 71 - 80% 0.0 min. 0.0 min. 0.0 min. 0.0 min. 81 - 90% 68.0 min. 19.7 min. 28.7 min. 19.5 min. 91 - 100% 376.4 min. 70.3 min. 264.8 min. 41.4 min. Average 92 92 93 91 Minimum SpO2 81 82 86 81 Desaturation Event Index 1.5 7.3 0.0 0.0 # Desat. Events below 89% 5 5 N/A N/A Time(%) with Saturation below 89% 6.1 2.2 1.7 2.3 Time(min.) with Saturation below 89% 27.1 9.6 7.4 10.1 Time (mins) REM (mins) NREM (mins) % of TST SpO2 Below 90% 6 6 NN/A 7.2 SpO2 Below 88% 5 0 0 3 Heart Rate Analysis Min (bpm) Max (bpm) Average (bpm) Awake 47 127 61 NREM 46 85 59 REM 48 78 59 Overall 46 85 59 Supplemental O2 Values Minimum O2 level: None Value Start Time End Time Drycleaner Comments Mr. Rangel slept in the right, left and supine positions. Irregular EKG noted. Leg movements noted. No bruxism noted. Snoring was noted and scored as a 1 on a scale of 1 through 5. (0=no snoring, 5=snoring loud enough to be heard through a closed door or down the woods way) Mr. Rangel awoke to use the restroom 2 times during the night. Mr. Rangel stated I did not sleep as well as I do when I am in my own bed. Mr. Rangel started on 1l/min of supplemental O2 per doctor's order and remained on 1l/min for the entire study. The final report will be interpreted and signed by a sleep physician. The completed physician report will then be placed in the patient medical record. Therapy (cm H2O) 0 TIB (min.) 445.0 TST (min.) 383.5 Sleep Onset (min.) 11.0 REM Onset From Sleep (min.) 25.5 Sleep Efficiency % 86 Wakefulness (%) 14 Wakefulness (min.) 61.5 NREM 1 (%) 7 NREM 1 (min.) 28.0 NREM 2 (%) 69 NREM 2 (min.) 265.5 NREM 3 (%) 0 NREM 3 (min.) 0.0 REM (%) 23 REM (min.) 90.0 # Arousals 23 Arousal Index 4 # Snore 19 Snore Index 3.0 AHI 1.7 AHI Supine N/A AHI Non-Supine 2 NREM AHI 0.2 REM AHI 6.7 RDI 1.9 # Obstructive Apnea 0 # Central Apnea 0 # Mixed Apnea 0 # Hypopneas 11 RERAs 1 Total Respiratory Events 12 Time Below SpO2 89% (min.) 17.0 Mean NREM SpO2 (%) 93 Mean REM SpO2 (%) 92 Mean Sleep SpO2 (%) 92 Min NREM SpO2 (%) 86 Min REM SpO2 (%) 82 Position Supine (min.) 0.9 Position Non-supine (min.) 383.5 LM Index Sleep 52.3 LM Index NREM 57.9 LM Index REM 34.0 Mean Heart Rate (bpm) 59 Min Heart Rate (bpm) 46
--- NOTE | 2017-02-16 07:55 | POLYSOMNOGRAPH REPORT ---
REFERRING PERSON: Dr. Chris Charles. GRAB JACK MAN: Loco Forbes. Mr. Rangel is a 62-year-old male with a previous history of endocarditis and valve replacement who is on chronic oxygen therapy at 4 liters continuously. He has a history of atrial fibrillation, excessive daytime sleepiness and snoring. He is here to rule out obstructive sleep apnea as a contributor. [place] sleepiness scale score on the evening of this study is 4. BMI is 34.93. Following the technical and digital specifications of the [place] [employer] (AASM) a standard diagnostic polysomnogram was performed monitoring EEG, EOG, EMG (chin and leg deviations), oxygen saturation, body position, digital video, respiratory effort and airflow. The sleep Stage and event scoring was based on the AASM Manual for the Scoring of Sleep and Associated Events 2007 edition. Apneas are defined as a drop in the peak thermal sensor excursion by >90% of baseline for at least 10 seconds. Hypopneas were scored using the 4% oxygen desaturation rule (4A-[employer]) and a decrease in the nasal pressure excursions by >30% of baseline for at least 10 seconds. Respiratory effort-related arousal (RERA's) is defined as a sequence of breaths lasting at least 10 seconds characterized by increasing respiratory effort or flattening of the nasal pressure waveform leading to an arousal from sleep when the sequence of breaths does not meet criteria for an apnea or hypopnea. Apnea Hypopnea index (AHI) is defined as the number of apneas and hypopneas occurring in an hour of sleep. Respiratory disturbance index (RDI) is defined as the number of apneas, hypopneas, and RERA's occurring in an hour of sleep. Mr. Rangel's total sleep period time was 434 minutes. Total sleep time was 383.5 minutes. Sleep efficiency was 86%. Latency to sleep onset was 11 minutes with wake after sleep onset of 50.5 minutes. Total non-REM sleep time was 293.5 minutes. He spent 7% of that time in N1 sleep, 69% in N2 sleep and had no time in N3 sleep. REM latency was 25.5 minutes which is short. Total REM sleep time was 90 minutes or 23% of total sleep time. There were 23 cortical arousals from sleep. Twenty of these arousals were spontaneous, 1 was due to respiratory event, 1 due to periodic limb movements of sleep and 1 was due to snoring. There were 334 steps periodic limb movements noted on this test. Limb movement index was 52.3, however limb movement with arousal index was 0.2. There were no central, obstructive or mixed apneas on this test. There were 11 hypopneas and 1 RERA. Apnea-hypopnea index was 1.7, which is normal. Nineteen snoring events were recorded. Total sleep time with snoring was 0.3%. Mean saturation was 92%, desaturations to 81% were noted. Saturations were less than 89% for 27.1 minutes of recording time. It should be noted that this patient since he is on chronic oxygen at home, had this test performed while using 1 liter of supplemental oxygen from the start of this study. Irregular EKG was noted on EKG monitoring. Heart rates during sleep ranged from a low of 46 beats per minute to a high of 85 beats per minute. IMPRESSION AND PLAN: A 62-year-old male without evidence of sleep apnea but at least some nocturnal hypoxemia despite 1 liter of supplemental oxygen during this study. It appears that this patient is using 4 liters of oxygen continuously both day and night. He should continue supplemental oxygen at home at night, however does not appear he has sleep apnea.
== END | disposition home or self-care (01) ==
LOC: C.NEUR 20:00
PROVIDERS: ATTEND Family Medicine
DX: R09.02 Hypoxemia (principal); E66.9 Obesity, unspecified; J96.11 Chronic respiratory failure with hypoxia; Z86.79 Personal history of other diseases of the circulatory system; R06.83 Snoring; J44.9 Chronic obstructive pulmonary disease, unspecified; I27.2 Other secondary pulmonary hypertension; F51.8 Other sleep disorders not due to a substance or known physiological condition